=== PATIENT | female | born 1950 | race Hispanic/Latino ===

== ENCOUNTER 2018-11-23 06:51 | Observation (INO) | payer MEDICARE ==
[2018-11-13 12:24] LABS: BILIRUBIN,URINE NEGATIVE (NEGATIVE); CLARITY,URINE SL CLOUDY (CLEAR); COLOR,URINE YELLOW (YELLOW); KETONES,URINE NEGATIVE (NEGATIVE); LEUKOCYTE ESTERASE ,URINE NEGATIVE (NEGATIVE); NITRITE,URINE NEGATIVE (NEGATIVE); PROTEIN,URINE DIPSTICK 1+ (NEGATIVE); URINE UROBILINOGEN 0.2 mg/dL (0.2 - 1)
[2018-11-13 12:33] LABS: BASOPHILS % 0.5 % (0.0-1.0); EOSINOPHILS # (AUTO) 0.3 (0.0-0.4); EOSINOPHILS % 4.1 % (0.0-6.0); HEMOGLOBIN 11.3 g/dL (12.0-16.0); LYMPHOCYTES # (AUTO) 2.5 (1.0-3.2); LYMPHOCYTES % 31.7 % (18.0-39.1); MEAN CORPUSCULAR HEMOGLOBIN 25.1 pg (28-32); MEAN CORPUSCULAR HGB CONC 29.7 g/dL (31-35); MEAN CORPUSCULAR VOLUME 84.4 fL (81-99); MONOCYTES # (AUTO) 0.5 (0.2-0.8); MONOCYTES % 6.6 % (4.4-11.3); NEUTROPHILS # (AUTO) 4.4 (2.1-6.9); NEUTROPHILS % 56.8 % (38.7-80.0); PLATELET COUNT 331 x10e3/uL (140-360); RED CELL DISTRIBUTION WIDTH 15.8 % (11.7-14.4)
--- NOTE | 2018-11-13 12:36 | Diagnostic Imaging Report ---
Chest, 2 views, 11/13/2018. History: Preop, ventral hernia. Comparison: None available. Findings: The cardiomediastinal silhouette and pulmonary vasculature are within normal limits. The lungs are clear without evidence of consolidation or pleural effusion. There are no acute osseous or soft tissue abnormalities. Impression: No acute cardiopulmonary abnormality. Signed by: Dominic Chung on 11/13/2018 12:33 PM
[2018-11-13 12:49] LABS: ANION GAP 17.3 mmol/L (8-16); CALCIUM 10.6 mg/dL (8.4-10.2); CREATININE, SERUM 0.97 mg/dL (0.57-1.11); POTASSIUM 4.3 mmol/L (3.5-5.1)
[~2018-11-23] VITALS: Ht 162.6 cm; Wt 128.4 kg
[~2018-11-23 06:51] MED LIST: AMLODIPINE BESYL5 MG PO; ASPIR 8181 MG PO; FERROUS SULFAT325 MG PO; GABAPENTIN300 MG PO; HYDROCHLOROTH12.5 M1 PO; LOSARTAN POTAS100 MG PO; METFORMIN HCL850 MG PO; OMEGA 3 PO; ONE DAILY FOR1 EACH PO; SERTRALINE HCL100 MG PO; VITAMIN B-121000 MC1 PO; VITAMIN D3 PO
--- OUTSIDE RECORDS SUMMARY | 2018-11-23 06:53 | XMS REPORT | Summary of Care ---
Author Author [facility] Organization [facility] Address Unknown Phone Unavailable Encounter HQ Gabbi(FIN) [id number] Date(s): 03/19/16 - 03/19/16 [facility] [address] [place] [address]- Discharge Disposition: Home or Self Care Attending Physician: Tasneem Vasques MD Referring Physician: Tasneem Vasques MD Vital Signs No data available for this section Problem List Condition Effective Dates Status Health Status Informant Acute Active bronchitis(Confirmed ) Benign Active hypertension(Confirm ed) Hypercholesterolemia Active (Confirmed) Depression(Confirmed Active ) Morbid Active obesity(Confirmed) Obstructive sleep Active apnea(Confirmed) Diabetes mellitus Active type 2, uncontrolled, without complications(Confir med) Allergies, Adverse Reactions, Alerts Substance Reaction Severity Status NKDA Active Medications No data available for this section Results No data available for this section Immunizations Given and Recorded Vaccine Date Status Refusal Reason influenza virus vaccine, inactivated 02/07/16 Given pneumococcal 23-valent vaccine 03/17/13 Recorded Procedures No data available for this section Social History Social History Type Response Alcohol Never Smoking Status Former smoker; Exposure to Tobacco Smoke None; Cigarette Smoking Last 365 Days No; Reg Smoking Cessation Counseling No Assessment and Plan No data available for this section
--- OUTSIDE RECORDS SUMMARY | 2018-11-23 06:53 | XMS REPORT | Summary of Care ---
Author Author [facility] Organization [facility] Address Unknown Phone Unavailable Encounter HQ Gabbi(FIN) [id number] Date(s): 01/27/18 - 01/28/18 [facility] [address] [place] [address]- [phone] Vital Signs No data available for this section Problem List Condition Effective Dates Status Health Status Informant Benign Active hypertension(Confirm ed) Knee Active osteoarthritis(Confi rmed) Asthma(Confirmed) < 09/06/16 Resolved Mixed Active hyperlipidemia(Confi rmed) Morbid Active obesity(Confirmed) Obstructive sleep Active apnea(Confirmed) Sleep Active apnea(Confirmed) Diabetes mellitus Active type 2, controlled(Confirmed ) Allergies, Adverse Reactions, Alerts No Known Medication Allergies Medications losartan 100 mg oral tablet 100 mg=1 tab, PO, Daily, # 90 tab, 1 Refill(s), Pharmacy: [facility]/pharmacy #[id number] Start Date: 01/27/18 Status: Ordered Results No data available for this section Immunizations Given and Recorded Vaccine Date Status Refusal Reason influenza virus vaccine, inactivated1 01/02/18 Given influenza virus vaccine, inactivated2 12/06/16 Given influenza virus vaccine, inactivated 02/07/16 Given pneumococcal 23-valent vaccine 03/17/13 Recorded 1Result Comment: Patient waited 15 min with no reaction. 2Result Comment: Patient waited 15 minutes, no allergic reaction. Procedures Procedure Date Related Diagnosis Body Site Status Bone density scan1, 2 05/22/18 Completed Mammogram3, 4 05/22/18 Completed Diabetic Retinopathy Study 7 field 11/04/17 Completed stereoscopic fundus photography5 Cataract surgery6 09/2017 Completed Colonoscopy7 08/05/17 Completed Cataract surgery8 07/2017 Completed Hysterectomy Completed 1NORMAL 2Normal 3There is no mammographic evidence of malignancy. A 1 year screening mammogram is recommended.(05/23/2019) 4There is no mammographic evidence of malignancy. A 1 year screening mammogram is recommended.(05/07/2018) 5No DR, cataract Dr Gusman 6right eye 7Mild diverticulosis. Next one in [address] Sneed 8Left eye Social History Social History Type Response Substance Abuse Use: None. Alcohol Past Smoking Status Former smoker; Exposure to Tobacco Smoke None; Cigarette Smoking Last 365 Days No; Reg Smoking Cessation Counseling No entered on: 05/06/18 Assessment and Plan No data available for this section
--- OUTSIDE RECORDS SUMMARY | 2018-11-23 06:53 | XMS REPORT | Summary of Care ---
Author Author [facility] Organization [facility] Address Unknown Phone Unavailable Encounter HQ Kary_stacy(FIN) [id number] Date(s): 08/08/16 - 08/08/16 [facility] [address] [place] [address]- Discharge Disposition: Home or Self Care Attending Physician: Kelvin Victoria MD Admitting Physician: Kelvin Victoria MD Vital Signs No data available for this section Problem List Condition Effective Dates Status Health Status Informant Benign Active hypertension(Confirm ed) Knee Active osteoarthritis(Confi rmed) Hypercholesterolemia Active (Confirmed) Asthma(Confirmed) Active Depression(Confirmed Active ) Morbid Active obesity(Confirmed) Obstructive [...] Given pneumococcal 23-valent vaccine 03/17/13 Recorded Procedures Procedure Date Related Diagnosis Body Site Bone density scan1 03/19/16 Mammogram 03/19/16 1Normal Social History Social History Type Response Alcohol Never Smoking Status Former smoker; Exposure to Tobacco Smoke None; Cigarette Smoking Last 365 Days No; Reg Smoking Cessation Counseling No Assessment and Plan No data available for this section
--- OUTSIDE RECORDS SUMMARY | 2018-11-23 06:53 | XMS REPORT | Summary of Care ---
Author Author [facility] Organization [facility] Address Unknown Phone Unavailable Encounter HQ Gabbi(FIN) [id number] Date(s): 05/06/17 - 05/06/17 [facility] [address] [place] [address]- [phone] Encounter Diagnosis Encounter for screening mammogram for malignant neoplasm of breast (Final) - 05/07/17 Discharge Disposition: Home or Self Care Attending Physician: Tasneem Vasques MD Referring Physician: Tasneem Vasques MD Vital Signs No data available for this section Problem List Condition Effective Dates Status Health Status Informant Benign Active hypertension(Confirm ed) Knee Active osteoarthritis(Confi rmed) Hypercholesterolemia Active (Confirmed) Asthma(Confirmed) < 09/06/16 Resolved Morbid Active obesity(Confirmed) Obstructive sleep Active apnea(Confirmed) Sleep Active apnea(Confirmed) Diabetes mellitus Active type 2, controlled(Confirmed ) Allergies, Adverse Reactions, Alerts Substance Reaction Severity Status NKDA Active Medications No data available for this section Results No data available for this section Immunizations Given and Recorded Vaccine Date Status Refusal Reason influenza virus vaccine, inactivated1 12/06/16 Given influenza virus vaccine, inactivated 02/07/16 Given pneumococcal 23-valent vaccine 03/17/13 Recorded 1Result Comment: Patient waited 15 minutes, no allergic reaction. Procedures Procedure Date Related Diagnosis Body Site Status Colonoscopy1 08/05/17 Completed Mammogram2 05/06/17 Completed Examination of eye3 03/2017 Completed Bone density scan4 03/19/16 Completed Hysterectomy Completed 1Mild diverticulosis. Next one in [address] Sneed 2There is no mammographic evidence of malignancy. A 1 year screening mammogram is recommended.(05/07/2018) 3per patient 4Normal Social History Social History Type Response Substance Abuse Use: None. Alcohol Past Smoking Status Former smoker; Exposure to Tobacco Smoke None; Cigarette Smoking Last 365 Days No; Reg Smoking Cessation Counseling No entered on: 08/08/17 Assessment and Plan No data available for this section
--- OUTSIDE RECORDS SUMMARY | 2018-11-23 06:53 | XMS REPORT | Summary of Care ---
Author Author [facility] Organization [facility] Address Unknown Phone Unavailable Encounter JOSIE Seo(WILLA) [id number] Date(s): 04/04/17 - 04/04/17 [facility] [address], [address] [place] [address]- [phone] Discharge Disposition: Home or Self Care Attending Physician: Tasneem Vasques MD Vital Signs Most recent to 1 oldest [Reference Range]: Height 154.94 cm (04/04/17 9:55 AM) Temperature Oral 98.7 DegF [96.4-99.1 DegF] (04/04/17 9:55 AM) Blood Pressure 151/73 mmHg [90-140/60-90 mmHg] *HI* (04/04/17 9:55 AM) Respiratory Rate 14 BRMIN [14-20 BRMIN] (04/04/17 9:55 AM) Peripheral Pulse 76 bpm Rate [60-100 bpm] (04/04/17 9:55 AM) Weight 139.091 kg (04/04/17 9:55 AM) Body Mass Index 57.94 m2 (04/04/17 9:55 AM) Problem List Condition Effective Dates Status Health Status Informant Benign Active hypertension(Confirm ed) Knee Active osteoarthritis(Confi rmed) Hypercholesterolemia Active (Confirmed) Asthma(Confirmed) < 09/06/16 Resolved Depression(Confirmed Active ) Morbid Active obesity(Confirmed) Obstructive sleep Active apnea(Confirmed) Diabetes mellitus Active type 2, uncontrolled, without complications(Confir med) Allergies, Adverse Reactions, Alerts Substance Reaction Severity Status NKDA Active Medications amLODIPine 5 mg oral tablet 5 mg=1 tab, PO, BID, # 180 tab, 1 Refill(s), Pharmacy: [id number] Start Date: 04/04/17 Stop Date: 10/01/17 Status: Ordered aspirin 81 mg tablet, enteric coated 81 mg=1 tab, PO, Daily, # 90 tab, 1 Refill(s), [id number] Start Date: 04/04/17 Stop Date: 10/01/17 Status: Ordered [facility] ADVANCED GLUCOSE TEST STR See Instructions, # 100 strip, Refill(s) 11, CHECK BLOOD GLUCOSE ONCE A DAY, [id number] Start Date: 05/26/17 Status: Ordered gabapentin 300 mg oral capsule See Instructions, TAKE 1 CAPSULE BY MOUTH TWICE A DAY, # 180 tab, 1 Refill(s), [id number] Start Date: 04/04/17 Status: Ordered hydrochlorothiazide 12.5 mg oral capsule See Instructions, TAKE ONE CAPSULE BY MOUTH DAILY, # 90 tab, 1 Refill(s), Pharma cy: [facility]/pharmacy #[id number] Start Date: 04/04/17 Status: Ordered losartan 100 mg oral tablet See Instructions, TAKE 1 TABLET BY MOUTH EVERY DAY, # 30 tab, 4 Refill(s), [id number] Start Date: 04/04/17 Status: Ordered metFORMIN 850 mg oral tablet See Instructions, TAKE 1 TABLET TWICE DAILY WITH MEALS, # 180 tab, 1 Refill(s), Pharmacy: [facility] #[id number] Start Date: 04/04/17 Status: Ordered sertraline 100 mg oral tablet See Instructions, TAKE 1 TABLET BY MOUTH EVERY DAY, # 30 tab, 4 Refill(s), Pharm acy: [facility] #[id number] Start Date: 04/04/17 Status: Ordered Results No data available for this section Immunizations Given and Recorded Vaccine Date Status Refusal Reason influenza virus vaccine, inactivated1 12/06/16 Given influenza virus vaccine, inactivated 02/07/16 Given pneumococcal 23-valent vaccine 03/17/13 Recorded 1Result Comment: Patient waited 15 minutes, no allergic reaction. Procedures Procedure Date Related Diagnosis Body Site Status Mammogram1 05/06/17 Completed Examination of eye2 03/2017 Completed Bone density scan3 03/19/16 Completed Hysterectomy Completed 1There is no mammographic evidence of malignancy. A 1 year screening mammogram is recommended.(05/07/2018) 2per patient 3Normal Social History Social History Type Response Alcohol Never Smoking Status Former smoker; Exposure to Tobacco Smoke None; Cigarette Smoking Last 365 Days No; Reg Smoking Cessation Counseling No entered on: 04/04/17 Assessment and Plan No data available for this section
--- OUTSIDE RECORDS SUMMARY | 2018-11-23 06:53 | XMS REPORT | Summary of Care ---
Author Author [facility] Organization [facility] Address Unknown Phone Unavailable Encounter HQ Kary_stacy(FIN) [id number] Date(s): 09/24/16 - 09/24/16 [facility] [address] [place] [address]- Discharge Disposition: Home or Self Care Attending Physician: Kelvin Victoria MD Referring Physician: Kelvin Victoria MD Vital Signs No [...] Site Bone density scan1 03/19/16 Mammogram 03/19/16 Examination of eye2 03/2016 1Normal 2per patient Social History Social History Type Response Alcohol Never Smoking Status Former smoker; Exposure to Tobacco Smoke None; Cigarette Smoking Last 365 Days No; Reg Smoking Cessation Counseling No Assessment and Plan No data available for this section
--- OUTSIDE RECORDS SUMMARY | 2018-11-23 06:53 | XMS REPORT | Summary of Care ---
Author Author [facility] Organization [facility] Address Unknown Phone Unavailable Encounter JOSIE Seo(WILLA) [id number] Date(s): 08/05/17 - 08/05/17 [facility] [address] [place] [address]- [phone] Discharge Disposition: Home or Self Care Attending Physician: Kyara Sneed MD Referring Physician: Kyara Sneed MD Vital Signs 1 2 3 Most recent to oldest [Reference Range]: 162.56 cm (08/01/17 9:14 AM) Height 97.8 DegF (08/01/17 9:20 AM) Temperature Oral [96.4-99.1 DegF] 142/72 mmHg *HI* (08/05/17 10:00 AM) 140/62 mmHg (08/05/17 9:45 AM) 140/62 mmHg (08/05/17 9:32 AM) Blood Pressure [90-140/60-90 mmHg] 19 BRMIN (08/05/17 10:00 AM) 15 BRMIN (08/05/17 9:45 AM) 18 BRMIN (08/05/17 9:32 AM) Respiratory Rate [14-20 BRMIN] 69 bpm (08/01/17 9:20 AM) Peripheral Pulse Rate [60-100 bpm] 128.636 kg (08/01/17 9:14 AM) Weight 48.68 m2 (08/01/17 9:14 AM) Body Mass Index Problem List Condition Effective Dates Status Health Status Informant Benign Active hypertension(Confirm ed) Knee Active osteoarthritis(Confi rmed) Depression(Confirmed Active ) Diabetes(Confirmed) Active Hypercholesterolemia Active (Confirmed) Asthma(Confirmed) < 09/06/16 Resolved HTN Active (hypertension)(Confi rmed) Depression(Confirmed Active ) Morbid Active obesity(Confirmed) Obstructive sleep Active apnea(Confirmed) Sleep Active apnea(Confirmed) Diabetes mellitus Active type 2, uncontrolled, without complications(Confir med) Allergies, Adverse Reactions, Alerts Substance Reaction Severity Status NKDA Active Medications One-A-Day Women oral tablet 1 tab, PO, Daily, 0 Refill(s) Start Date: 08/01/17 Status: Ordered Vitamin D3 PO, Daily, 0 Refill(s) Start Date: 08/01/17 Status: Ordered Results ELECTROLYTES Most recent to 1 oldest [Reference Range]: Sodium Lvl [135-145 140 mEq/L mEq/L] (08/01/17 10:02 AM) Potassium Lvl 3.9 mEq/L [3.5-5.1 mEq/L] (08/01/17 10:02 AM) Chloride Lvl [95-109 104 mEq/L mEq/L] (08/01/17 10:02 AM) CO2 [24-32 mEq/L] 28 mEq/L (08/01/17 10:02 AM) AGAP [10.0-20.0 11.9 mEq/L mEq/L] (08/01/17 10:02 AM) CHEM PANEL Most recent to 1 oldest [Reference Range]: Creatinine Lvl 0.89 mg/dL [0.50-1.40 mg/dL] (08/01/17 10:02 AM) eGFR 68 mL/min/1.73m2 1 *NA* (08/01/17 10:02 AM) BUN [7-22 mg/dL] 16 mg/dL (08/01/17 10:02 AM) Glucose Lvl [70-99 121 mg/dL mg/dL] *HI* (08/01/17 10:02 AM) Calcium Lvl 8.9 mg/dL [8.5-10.5 mg/dL] (08/01/17 10:02 AM) 1Result Comment: The eGFR is calculated using the CKD-EPI formula. In most young, healthy individuals the eGFR will be >90 mL/min/1.73m2. The eGFR declines with age. An eGFR of 60-89 may be normal in some populations, particularly the elderly, for whom the CKD-EPI formula has not been extensively validated. Use of the eGFR is not recommended in the following populations: Individuals with unstable creatinine concentrations, including patients and those with serious co-morbid conditions. Patients with extremes in muscle mass or diet. The data above are obtained from the National Kidney Disease Education Program ( NKDEP) which additionally recommends that when the eGFR is used in patients with extremes of body mass index for purposes of drug dosing, the eGFR should be mul tiplied by the estimated BMI. Immunizations Given and Recorded Vaccine Date Status Refusal Reason influenza virus vaccine, inactivated1 12/06/16 Given influenza virus vaccine, inactivated 02/07/16 Given pneumococcal 23-valent vaccine 03/17/13 Recorded 1Result Comment: Patient waited 15 minutes, no allergic reaction. Procedures Procedure Date Related Diagnosis Body Site Status Mammogram1 05/06/17 Completed Examination of eye2 03/2017 Completed Bone density scan3 03/19/16 Completed Colonoscopy4 Completed Hysterectomy Completed 1There is no mammographic evidence of malignancy. A 1 year screening mammogram is recommended.(05/07/2018) 2per patient 3Normal 4at age 50 Social History Social History Type Response Substance Abuse Use: None. Alcohol Past Smoking Status Former smoker; Exposure to Tobacco Smoke None; Cigarette Smoking Last 365 Days No; Reg Smoking Cessation Counseling No entered on: 08/01/17 Assessment and Plan No data available for this section
--- OUTSIDE RECORDS SUMMARY | 2018-11-23 06:53 | XMS REPORT | Summary of Care ---
Author Author [facility] Organization [facility] Address Unknown Phone Unavailable Encounter HQ Kary_stacy(FIN) [id number] Date(s): 08/14/16 - 08/14/16 [facility] [address] [place] [address]- [phone] Discharge Disposition: Home or Self Care Attending [...]
--- OUTSIDE RECORDS SUMMARY | 2018-11-23 06:53 | XMS REPORT | Summary of Care ---
Author Author [facility] Organization [facility] Address Unknown Phone Unavailable Encounter JOSIE Seo(WILLA) [id number] Date(s): 04/04/17 - 04/04/17 [facility] [address], [address] [place] [address]- [phone] Discharge Disposition: Home or Self Care Attending [...] # 180 tab, 1 Refill(s), [id number] Start Date: 04/04/17 Stop Date: 10/01/17 Status: Ordered aspirin 81 mg tablet, enteric coated 81 mg=1 tab, PO, Daily, # 90 tab, 1 Refill(s), [id number] Start Date: 04/04/17 Stop Date: 10/01/17 Status: Ordered [facility] ADVANCED GLUCOSE TEST STR See Instructions, # 100 strip, Refill(s) 11, CHECK BLOOD GLUCOSE ONCE A DAY, [id number] Start Date: 05/26/17 Status: Ordered gabapentin 300 mg oral capsule See Instructions, TAKE 1 CAPSULE BY MOUTH TWICE A DAY, # 180 tab, 1 Refill(s), [id number] Start Date: 04/04/17 Status: Ordered hydrochlorothiazide 12.5 mg oral capsule See Instructions, TAKE ONE CAPSULE BY MOUTH DAILY, # 90 tab, 1 Refill(s), Pharma cy: [facility]/pharmacy #[id number] Start Date: 04/04/17 Status: Ordered losartan 100 mg oral tablet See Instructions, TAKE 1 TABLET BY MOUTH EVERY DAY, # 30 tab, 4 Refill(s), [id number] Start Date: 04/04/17 Status: Ordered metFORMIN 850 mg oral tablet See Instructions, TAKE 1 TABLET TWICE DAILY WITH MEALS, # 180 tab, 1 Refill(s), Pharmacy: [facility] #[id number] Start Date: 04/04/17 Status: Ordered sertraline 100 mg oral tablet See Instructions, TAKE 1 TABLET BY MOUTH EVERY DAY, # 30 tab, 4 Refill(s), Pharm acy: [facility] #[id number] Start Date: 04/04/17 Status: Ordered Results [...]
--- OUTSIDE RECORDS SUMMARY | 2018-11-23 06:53 | XMS REPORT | Summary of Care ---
Author Author [facility] Organization [facility] Address Unknown Phone Unavailable Encounter JOSIE Seo(FIN) [id number] Date(s): 05/06/18 - 05/06/18 [facility] [address], [address] [place] [address]- [phone] Discharge Disposition: Home or Self Care Attending Physician: Tasneem Vasques MD Vital Signs Most recent to 1 2 oldest [Reference Range]: Height 162.56 cm (05/06/18 11:12 AM) Temperature Oral 97.8 DegF [96.4-99.1 DegF] (05/06/18 11:12 AM) Blood Pressure 135/67 mmHg 155/83 mmHg [90-140/60-90 mmHg] (05/06/18 11:30 AM) *HI* (05/06/18 11:12 AM) Respiratory Rate 16 BRMIN [14-20 BRMIN] (05/06/18 11:12 AM) Peripheral Pulse 60 bpm Rate [60-100 bpm] (05/06/18 11:12 AM) Weight 128.438 kg (05/06/18 11:12 AM) Body Mass Index 48.6 m2 (05/06/18 11:12 AM) Problem List Condition Effective Dates Status Health Status Informant Benign Active hypertension(Confirm ed) Knee Active osteoarthritis(Confi rmed) Asthma(Confirmed) < 09/06/16 Resolved Mixed Active hyperlipidemia(Confi rmed) Morbid Active obesity(Confirmed) Obstructive sleep Active apnea(Confirmed) Sleep Active apnea(Confirmed) Diabetes mellitus Active type 2, controlled(Confirmed ) Allergies, Adverse Reactions, Alerts Substance Reaction Severity Status NKDA Active Medications No Known Medications Results No data available for this section [...] Procedure Date Related Diagnosis Body Site Status Diabetic Retinopathy Study 7 field 11/04/17 Completed stereoscopic fundus photography1 Cataract surgery2 09/2017 Completed Colonoscopy3 08/05/17 Completed Cataract surgery4 07/2017 Completed Mammogram5 05/06/17 Completed Bone density scan6 03/19/16 Completed Hysterectomy Completed 1No DR, cataract Dr Gusman 2right eye 3Mild diverticulosis. Next one in [address] Sneed 4Left eye 5There is no mammographic evidence of malignancy. A 1 year screening mammogram is recommended.(05/07/2018) 6Normal Social History Social History Type Response Substance Abuse Use: None. Alcohol Past Smoking Status Former smoker; Exposure to Tobacco Smoke None; Cigarette Smoking Last 365 Days No; Reg Smoking Cessation Counseling No entered on: 05/06/18 Assessment and Plan No data available for this section
--- OUTSIDE RECORDS SUMMARY | 2018-11-23 06:53 | XMS REPORT | Summary of Care ---
Author Author [facility] Organization [facility] Address Unknown Phone Unavailable Encounter JOSIE Seo(WILLA) [id number] Date(s): 01/02/18 - 01/02/18 [facility] [address] [place] [address]- Discharge Disposition: Home or Self Care Attending Physician: Tasneem Vasques MD Vital Signs Most recent to 1 oldest [Reference Range]: Height 162.56 cm (01/02/18 11:42 AM) Temperature Oral 97.2 DegF [96.4-99.1 DegF] (01/02/18 11:42 AM) Blood Pressure 136/68 mmHg [90-140/60-90 mmHg] (01/02/18 11:42 AM) Respiratory Rate 16 BRMIN [14-20 BRMIN] (01/02/18 11:42 AM) Peripheral Pulse 68 bpm Rate [60-100 bpm] (01/02/18 11:42 AM) Weight 131.364 kg (01/02/18 11:42 AM) Body Mass Index 49.71 m2 (01/02/18 11:42 AM) Problem List Condition Effective Dates Status Health Status Informant Benign Active hypertension(Confirm ed) Knee Active osteoarthritis(Confi rmed) Asthma(Confirmed) < 09/06/16 Resolved Mixed Active hyperlipidemia(Confi rmed) Morbid Active obesity(Confirmed) Obstructive sleep Active apnea(Confirmed) Sleep Active apnea(Confirmed) Diabetes mellitus Active type 2, controlled(Confirmed ) Allergies, Adverse Reactions, Alerts No Known Medication Allergies Medications amLODIPine 5 mg oral tablet 5 mg=1 tab, PO, BID, # 180 tab, 1 Refill(s), Pharmacy: [facility]/pharmacy #[id number] Start Date: 01/02/18 Stop Date: 07/06/18 Status: Completed gabapentin 300 mg oral capsule See Instructions, TAKE 1 CAPSULE BY MOUTH TWICE A DAY, # 180 tab, 1 Refill(s), P harmacy: [facility]/pharmacy #[id number] Start Date: 01/02/18 Status: Ordered hydrochlorothiazide 12.5 mg oral capsule See Instructions, Take 1 tablet twice a day, # 180 tab, 1 Refill(s), [id number] Start Date: 01/02/18 Status: Ordered losartan 100 mg oral tablet See Instructions, TAKE 1 TABLET BY MOUTH EVERY DAY, # 90 tab, 1 Refill(s), Pharm acy: [facility]/pharmacy #[id number] Start Date: 01/02/18 Stop Date: 05/06/18 Status: Discontinued metFORMIN 850 mg oral tablet See Instructions, TAKE 1 TABLET TWICE DAILY WITH MEALS, # 180 tab, 1 Refill(s), [id number] Start Date: 01/02/18 Status: Ordered sertraline 100 mg oral tablet See Instructions, TAKE 1 TABLET BY MOUTH EVERY DAY, # 30 tab, 4 Refill(s), Pharm acy: [facility]/pharmacy #[id number] Start Date: 01/02/18 Stop Date: 01/29/18 Status: Completed Results No data available for this section [...] 1 year screening mammogram is recommended.(05/07/2018) 5No , cataract Dr Gusman 6right eye 7Mild diverticulosis. Next one in [address] Sneed 8[facility] Social History Social History Type Response Substance Abuse Use: None. Alcohol Past Smoking Status Former smoker; Exposure to Tobacco Smoke None; Cigarette Smoking Last 365 Days No; Reg Smoking Cessation Counseling No entered on: 05/06/18 Assessment and Plan No data available for this section
--- OUTSIDE RECORDS SUMMARY | 2018-11-23 06:53 | XMS REPORT | Summary of Care ---
Author Author [facility] Organization [facility] Address Unknown Phone Unavailable Encounter HQ Kary_stacy(FIN) [id number] Date(s): 05/07/18 - 05/08/18 [facility] [address], [address] [place] [address]- [phone] Vital Signs No data available for this [...]
--- OUTSIDE RECORDS SUMMARY | 2018-11-23 06:53 | XMS REPORT | Continuity of Care Document ---
Author Author [employer]hand Organization [employer] Address Unknown Phone Unavailable Care Team Providers Care [employer] Name Role Phone [employer] Unavailable Unavailable Problems Problem Status Onset Date Classification Date Reported Comments Source ROUTINE MAMMO - NO SYMPTOMS, OSTEOPOROSI Active 05/08/2018 [facility] UNK Active 07/18/2017 [facility] Encounter for screening mammogram for malignant neoplasm of breast 05/08/2017 08/12/2017 [facility] SCREENING Active 04/08/2017 [facility] Asthma (disorder) Resolved 09/06/2016 Problem 10/09/2018 [facility] CPAP [id number] Active 09/03/2016 [facility] FIRST NIGHT 93029 Active 08/13/2016 [facility] R06.02 Active 08/08/2016 [facility] DX: SCREENING MAMMO/OSTEOPOROSIS WILL Active 02/09/2016 [facility] Hypercholesterolemia (disorder) Active Problem 08/12/2017 [facility] Depressive disorder (disorder) Active Problem 08/08/2017 [facility] Type II diabetes mellitus uncontrolled (finding) Active Problem 08/08/2017 [facility] Benign hypertension (disorder) Active Problem 10/09/2018 [facility] Osteoarthritis of knee (disorder) Active Problem 10/09/2018 [facility] Mixed hyperlipidemia (disorder) Active Problem 10/09/2018 [facility] Morbid obesity (disorder) Active Problem 10/09/2018 [facility] Obstructive sleep apnea syndrome (disorder) Active Problem 10/09/2018 [facility] Sleep apnea (finding) Active Problem 08/28/2018 [facility] Diabetes mellitus type 2 (disorder) Active Problem 10/09/2018 [facility] Acute bronchitis (disorder) Active Problem 03/22/2016 [facility] Diabetes mellitus (disorder) Active Problem 08/08/2017 [facility] Hypertensive disorder, systemic arterial (disorder) Active Problem 08/08/2017 [facility] Hernia of anterior abdominal wall (disorder) Active Problem 10/09/2018 [facility] ENCNTR SCREEN MAMMOGRAM FOR MALIGNANT NE Active [facility] AGE-RELATED OSTEOPOROSIS W/O CURRENT PAT Active [facility] SHORTNESS OF BREATH Active [facility] OBSTRUCTIVE SLEEP APNEA (ADULT) (PEDIATR Active [facility] Medications Medication Details Route Status Patient Instructions Ordering Provider Order Date Source sertraline 100 mg oral tablet =1 tab, PO, Daily, # 90 tab, 1 Refill(s), [id number] 09/03/2018 [facility] Metformin hydrochloride 850 MG Oral Tablet See Instructions, TAKE 1 TABLET TWICE DAILY WITH MEALS, # 180 tab, 1 Refill(s), [id number] Active 09/03/2018 [facility] losartan 100 mg oral tablet 100 mg=1 tab, PO, Daily, # 90 tab, 1 Refill(s), [id number] Active 09/03/2018 [facility] Hydrochlorothiazide 12.5 MG Oral Capsule =1 cap, PO, BID, # 180 cap, 1 Refill(s), [id number] Active 09/03/2018 [facility] gabapentin 300 MG Oral Capsule See Instructions, TAKE 1 CAPSULE BY MOUTH TWICE A DAY, # 180 tab, 1 Refill(s), [id number] Active 09/03/2018 [facility] amLODIPine 5 mg oral tablet 5 mg=1 tab, PO, BID, # 180 tab, 0 Refill(s), [id number] Active 09/03/2018 [facility] amLODIPine 5 mg oral tablet 5 mg=1 tab, PO, BID, # 180 tab, 0 Refill(s), [id number] Active 08/24/2018 [facility] amLODIPine 5 mg oral tablet =1 tab, PO, Daily, # 90 tab, Refill(s) 1, [id number] Active 07/06/2018 [facility] sertraline 100 mg oral tablet =1 tab, PO, Daily, # 90 tab, [id number] No Longer Active 06/21/2018 [facility] sertraline 100 mg oral tablet 100 mg=1 tab, PO, Daily, # 90 tab, 0 Refill(s), [id number] No Longer Active 03/20/2018 [facility] losartan 100 mg oral tablet 100 mg=1 tab, PO, Daily, # 90 tab, 1 Refill(s), [id number] Active 01/28/2018 [facility] amLODIPine 5 mg oral tablet 5 mg=1 tab, PO, Daily, # 90 tab, 1 Refill(s), Pharmacy: [facility] #[id number] No Longer Active 01/15/2018 [facility] sertraline 100 mg oral tablet See Instructions, TAKE 1 TABLET BY MOUTH EVERY DAY, # 30 tab, 4 Refill(s), [id number] No Longer Active 01/02/2018 [facility] Metformin hydrochloride 850 MG Oral Tablet See Instructions, TAKE 1 TABLET TWICE DAILY WITH MEALS, # 180 tab, 1 Refill(s), Pharmacy: [facility] #[id number] Active 01/02/2018 [facility] losartan 100 mg oral tablet See Instructions, TAKE 1 TABLET BY MOUTH EVERY DAY, # 90 tab, 1 Refill(s), Pharmacy: [facility] #[id number] No Longer Active 01/02/2018 [facility] Hydrochlorothiazide 12.5 MG Oral Capsule See Instructions, Take 1 tablet twice a day, # 180 tab, 1 Refill(s), [id number] Active 01/02/2018 [facility] gabapentin 300 MG Oral Capsule See Instructions, TAKE 1 CAPSULE BY MOUTH TWICE A DAY, # 180 tab, 1 Refill(s), Pharmacy: [facility] #[id number] Active 01/02/2018 [facility] amLODIPine 5 mg oral tablet 5 mg=1 tab, PO, BID, # 180 tab, 1 Refill(s), [id number] No Longer Active 01/02/2018 [facility] sertraline 100 mg oral tablet See Instructions, TAKE 1 TABLET BY MOUTH EVERY DAY, # 30 tab, 4 Refill(s), [id number] Active 08/08/2017 [facility] Metformin hydrochloride 850 MG Oral Tablet See Instructions, TAKE 1 TABLET TWICE DAILY WITH MEALS, # 180 tab, 1 Refill(s), [id number] Active 08/08/2017 [facility] losartan 100 mg oral tablet See Instructions, TAKE 1 TABLET BY MOUTH EVERY DAY, # 90 tab, 1 Refill(s), [id number] Active 08/08/2017 [facility] levalbuterol 0.63 mg/3 mL inhalation solution 0.63 mg=3 mL, NEB, Q6H, PRN as need for shortness of breath, as needed for cough, # 360 mL, 8 Refill(s), [id number] Active 08/08/2017 [facility] Hydrochlorothiazide 12.5 MG Oral Capsule See Instructions, Take 1 tablet twice a day, # 180 tab, 1 Refill(s), [id number] Active 08/08/2017 [facility] gabapentin 300 MG Oral Capsule See Instructions, TAKE 1 CAPSULE BY MOUTH TWICE A DAY, # 180 tab, 1 Refill(s), [id number] Active 08/08/2017 [facility] Aspirin 81 MG Enteric Coated Tablet 81 mg=1 tab, PO, Daily, # 90 tab, 1 Refill(s), [id number] Active 08/08/2017 [facility] amLODIPine 5 mg oral tablet 5 mg=1 tab, PO, BID, # 180 tab, 1 Refill(s), [id number] Active 08/08/2017 [facility] Vitamin D3 PO, Daily, 0 Refill(s) Active 08/01/2017 [facility] One-A-Day Women oral tablet 1 tab, PO, Daily, 0 Refill(s) Active 08/01/2017 [facility] amLODIPine 5 mg oral tablet 5 mg=1 tab, PO, BID, # 180 tab, 1 Refill(s), [id number] Active 07/29/2017 [facility] ADVANCED GLUCOSE TEST STR See Instructions, # 100 strip, Refill(s) 11, CHECK BLOOD GLUCOSE ONCE A DAY, [id number] Active 05/26/2017 [facility] sertraline 100 mg oral tablet See Instructions, TAKE 1 TABLET BY MOUTH EVERY DAY, # 30 tab, 4 Refill(s), [id number] Active 04/04/2017 [facility] Metformin hydrochloride 850 MG Oral Tablet See Instructions, TAKE 1 TABLET TWICE DAILY WITH MEALS, # 180 tab, 1 Refill(s), [id number] Active 04/04/2017 [facility] losartan 100 mg oral tablet See Instructions, TAKE 1 TABLET BY MOUTH EVERY DAY, # 30 tab, 4 Refill(s), [id number] Active 04/04/2017 [facility] Hydrochlorothiazide 12.5 MG Oral Capsule See Instructions, TAKE ONE CAPSULE BY MOUTH DAILY, # 90 tab, 1 Refill(s), [id number] Active 04/04/2017 [facility] gabapentin 300 MG Oral Capsule See Instructions, TAKE 1 CAPSULE BY MOUTH TWICE A DAY, # 180 tab, 1 Refill(s), [id number] Active 04/04/2017 [facility] amLODIPine 5 mg oral tablet 5 mg=1 tab, PO, BID, # 180 tab, 1 Refill(s), [id number] Active 04/04/2017 [facility] Aspirin 81 MG Enteric Coated Tablet 81 mg=1 tab, PO, Daily, # 90 tab, 1 Refill(s), [id number] Active 04/04/2017 [facility] Allergies, Adverse Reactions, Alerts Substance Category Reaction Severity Reaction type Status Date Reported Comments Source No Known Medication Allergies Assertion Drug allergy [facility] Immunizations Immunization Date Given Site Status Last Updated Comments Source influenza virus vaccine, inactivated<sup>1</sup> 01/02/2018 Right Deltoid completed [facility] Result Comment: Patient waited 15 min with no reaction. [facility] influenza virus vaccine, inactivated<sup>2</sup> 12/06/2016 Left Deltoid completed [facility] Result Comment: Patient waited 15 minutes, no allergic reaction. [facility] influenza virus vaccine, inactivated<sup>1</sup> 12/06/2016 Left Deltoid completed [facility] Result Comment: Patient waited 15 minutes, no allergic reaction. [facility] influenza virus vaccine, inactivated 02/07/2016 Right Deltoid completed [facility] pneumococcal 23-valent vaccine 03/17/2013 completed [facility] Results Order Name Results Value Reference Range Date Interpretation Comments Source CHEM PANEL eGFR 68 08/01/2017 Result Comment: The eGFR is calculated using the [...] from the National Kidney Disease Education Program (NKDEP) which additionally recommends that when the eGFR is used in patients with extremes of body mass index for purposes of drug dosing, the eGFR should be multiplied by the estimated BMI. [facility] CHEM PANEL CO2 28 24 - 32 08/01/2017 [facility] CHEM PANEL Calcium Lvl 8.9 8.5 - 10.5 08/01/2017 [facility] CHEM PANEL AGAP 11.9 10.0 - 20.0 08/01/2017 [facility] CHEM PANEL Creatinine Lvl 0.89 0.50 - 1.40 08/01/2017 [facility] CHEM PANEL BUN 16 7 - 22 08/01/2017 [facility] CHEM PANEL Glucose Lvl 121 70 - 99 08/01/2017 [facility] CHEM PANEL Chloride Lvl 104 95 - 109 08/01/2017 [facility] CHEM PANEL Potassium Lvl 3.9 3.5 - 5.1 08/01/2017 [facility] CHEM PANEL Sodium Lvl 140 135 - 145 08/01/2017 [facility] Pathology Reports No Data Provided for This Section Diagnostic Reports Report Value Date Source Breast Mammo Scrn VENKATESH incl CAD MA BILATERAL DIGITAL SCREENING MAMMOGRAM WITH CAD: 05/22/2018 CLINICAL: /Routine. Current study was evaluated with a Computer Aided Detection (CAD) system. COMPARISON:Comparison is made to exams dated: 05/06/2017 mammogram, 03/19/2016 mammogram - [facility], and 09/19/2014 mammogram. TECHNIQUE: Mammographic views were obtained using digital acquisition. [employer] Version 1.3 was utilized for computer aided detection. FINDINGS: There are scattered fibroglandular densities in both breasts. There are benign vascular calcifications in both breasts. No significant masses, calcifications, or other findings are seen in either breast. There has been no significant interval change. IMPRESSION: BENIGN RECOMMENDATION:There is no mammographic evidence of malignancy. A 1 year screening mammogram is recommended.(05/23/2019) This exam was interpreted at [id number] for [facility] Breast Wayan. Gale Porter M.D. ap/penrad:05/22/2018 12:16:12 [employer] Operator(s): Lili Dodson, [facility] letter sent: BI-RADS 1/2 Mammogram BI-RADS: 2 Benign 05/22/2018 [facility] Bone Density Scan Study: Bone Density Scan Clinical Indication: Osteoporosis screening; Images of the axial lumbar spine and left hip have been performed using [employer] Discovery SL scanner. COMPARISON: 03/19/2016 FINDINGS: The left hip bone mineral density is 138% of the peak reference bone mass with a T-score of 2.9. Left hip BMD is 1.302 g/cm2. Left femoral neck BMD is 1.085 g/cm2 and T-score of 2.1. Left hip BMD has increased 28% since previous exam. The axial lumbar bone mineral density is 129% of the peak reference bone mass with a T-score of 2.8. Axial lumbar average BMD is 1.352 g/cm2. Lumbar spine BMD has increased 15% since previous exam. IMPRESSION: 1. Normal bone mineral density of the left femoral neck. 2. Normal bone mineral density of the total left hip. 3. Normal bone mineral density of the lumbar spine. The World Health Organization has established that OSTEOPOROSIS occurs at -2.5 or more standard deviations (SD) below peak bone mass (T-score on the Hologic report). OSTEOPENIA (low bone mass) occurs at greater than -1.0 standard deviations to -2.5 standard deviations below peak bone mass. SL: [id number] 05/22/2018 [facility] Breast Mammo Scrn VENKATESH incl CAD MA BILATERAL DIGITAL SCREENING MAMMOGRAM WITH CAD: 05/06/2017 Current study was evaluated with a Computer Aided Detection (CAD) system. COMPARISON:Comparison is made to exams dated: 03/19/2016 mammogram - [facility] and 09/19/2014 mammogram. TECHNIQUE: Mammographic views were obtained using digital acquisition. [employer] Version 1.3 was utilized for computer aided detection. FINDINGS: The tissue of both breasts is almost entirely fat. Technologist indicates the exam is limited secondary to the patient's underlying prior shoulder injury/pain. Optimal positioning was not allowed. Best images obtained were submitted. There is a benign calcification in both breasts. There also are benign vascular calcifications in both breasts. No significant masses, calcifications, or other findings are seen in either breast. There has been no significant interval change. IMPRESSION: BENIGN RECOMMENDATION:There is no mammographic evidence of malignancy. A 1 year screening mammogram is recommended.(05/07/2018) This exam was interpreted at [id number] for [facility]. Danny gould/penrad:05/06/2017 10:08:33 [employer] Cutting Machine Operator(s): Ana Isabel, [facility] letter sent: BI-RADS 1/2 Mammogram BI-RADS: 2 Benign 05/06/2017 [facility] Chest 2 views DX Patient Name: SHADE LUGO : 1950; Age: 65 years y/o Female MR: [id number] * CHEST, 2 views HISTORY: - r06.o2 shortness of breath COMPARISON: None TECHNIQUE: Frontal and lateral radiographs of the chest were obtained. FINDINGS: The lungs are clear. There is slight flattening the hemidiaphragms, possible chronic obstructive pulmonary disease. There are no pleural effusions. The heart and pulmonary vasculature are within normal limits. The regional skeleton is unremarkable. IMPRESSION: 1. No active disease. 2. Slight flattening of the hemidiaphragms, possible chronic obstructive pulmonary disease. SL: [id number] 08/08/2016 [facility] Digital Mammo Screening Venkatesh MA - DIGITAL MAMMO SCREENING VENKATESH MA BILATERAL DIGITAL SCREENING MAMMOGRAM WITH CAD: 03/19/2016 Current study was evaluated with a Computer Aided Detection (CAD) system. Comparison is made to exam dated: 09/19/2014 mammogram. The tissue of both breasts is almost entirely fat. There are benign vascular calcifications and a calcification in both breasts. No significant masses, calcifications, or other findings are seen in either breast. There has been no significant interval change. IMPRESSION: BENIGN There is no mammographic evidence of malignancy. A 1 year screening mammogram is recommended. Danny gould/penrad:03/21/2016 11:03:09 Flame Cutting Machine Operator: Blanca Segundo, [facility] This exam was dictated and interpreted by [id number] for [facility]. letter sent: Normal exam Mammogram BI-RADS: 2 Benign 03/19/2016 [facility] Bone Density Scan Study: Bone Density Scan Clinical Indication: m81.0 osteoporosis; prior hysterectomy. Images of the axial lumbar spine and left hip have been performed using [employer] Discovery SL scanner. COMPARISON: None FINDINGS: The left hip bone mineral density is 108% of the peak reference bone mass with a T-score of 0.6. Left hip BMD is 1.015 g/cm2. Left Femoral neck BMD is 0.837 g/cm2 and T-score of -0.1. The axial lumbar bone mineral density is 112% of the peak reference bone mass with a T-score 1.1. Axial lumbar average BMD is 1.171 g/cm2. IMPRESSION: 1. Normal bone density of the left femoral neck. 2. Normal bone density of the total left hip. 3. Normal bone density of the lumbar spine. The World Health Organization has established that OSTEOPOROSIS occurs at -2.5 or more standard deviations (SD) below peak bone mass (T-score on the Hologic report). OSTEOPENIA (low bone mass) occurs at -1.0 standard deviations to -2.5 standard deviations below peak bone mass. SL: [id number] 03/19/2016 [facility] Consultation Notes No Data Provided for This Section Discharge Summaries No Data Provided for This Section History and Physicals No Data Provided for This Section Vital Signs Vital Sign Value Date Comments Source Systolic (mm Hg) 138 09/03/2018 [facility] Diastolic (mm Hg) 61 09/03/2018 [facility] Weight 130.909 09/03/2018 [facility] BMI Calculated 49.54 09/03/2018 [facility] Height 162.56 cm 09/03/2018 [facility] Respitory Rate 16 09/03/2018 [facility] Temperature Oral (F) 98.1 F 09/03/2018 [facility] Systolic (mm Hg) 145 09/03/2018 [facility] Diastolic (mm Hg) 77 09/03/2018 [facility] Heart Rate 67 09/03/2018 [facility] Systolic (mm Hg) 135 05/06/2018 [facility] Diastolic (mm Hg) 67 05/06/2018 [facility] BMI Calculated 48.6 05/06/2018 [facility] Height 162.56 cm 05/06/2018 [facility] Weight 128.438 05/06/2018 [facility] Systolic (mm Hg) 155 05/06/2018 [facility] Diastolic (mm Hg) 83 05/06/2018 [facility] Respitory Rate 16 05/06/2018 [facility] Heart Rate 60 05/06/2018 [facility] Temperature Oral (F) 97.8 F 05/06/2018 [facility] Weight 131.364 01/02/2018 [facility] BMI Calculated 49.71 01/02/2018 [facility] Height 162.56 cm 01/02/2018 [facility] Systolic (mm Hg) 136 01/02/2018 [facility] Diastolic (mm Hg) 68 01/02/2018 [facility] Heart Rate 68 01/02/2018 [facility] Respitory Rate 16 01/02/2018 [facility] Temperature Oral (F) 97.2 F 01/02/2018 [facility] Weight 127.727 08/08/2017 [facility] BMI Calculated 48.33 08/08/2017 [facility] Respitory Rate 16 08/08/2017 [facility] Temperature Oral (F) 99.9 F 08/08/2017 [facility] Height 162.56 cm 08/08/2017 [facility] Systolic (mm Hg) 117 08/08/2017 [facility] Diastolic (mm Hg) 44 08/08/2017 [facility] Heart Rate 71 08/08/2017 [facility] Systolic (mm Hg) 142 08/05/2017 [facility] Diastolic (mm Hg) 72 08/05/2017 [facility] Respitory Rate 19 08/05/2017 [facility] Systolic (mm Hg) 140 08/05/2017 [facility] Diastolic (mm Hg) 62 08/05/2017 [facility] Respitory Rate 15 08/05/2017 [facility] Systolic (mm Hg) 140 08/05/2017 [facility] Diastolic (mm Hg) 62 08/05/2017 [facility] Respitory Rate 18 08/05/2017 [facility] Heart Rate 69 08/01/2017 [facility] Temperature Oral (F) 97.8 F 08/01/2017 [facility] Weight 128.636 08/01/2017 [facility] BMI Calculated 48.68 08/01/2017 [facility] Height 162.56 cm 08/01/2017 [facility] Weight 139.091 04/04/2017 [facility] Height 154.94 cm 04/04/2017 [facility] BMI Calculated 57.94 04/04/2017 [facility] Respitory Rate 14 04/04/2017 [facility] Heart Rate 76 04/04/2017 [facility] Temperature Oral (F) 98.7 F 04/04/2017 [facility] Systolic (mm Hg) 151 04/04/2017 [facility] Diastolic (mm Hg) 73 04/04/2017 [facility] Encounters Location Location Details Encounter Type Encounter Number Reason For Visit Attending Provider ADM Date DC Date Status Source Outpatient [id number] TASNEEM GUZMÁN 02/07/2016 Active [facility] Outpatient [id number] TASNEEM GUZMÁN 03/07/2016 Active [facility] Outpatient [id number] Tasneem Guzmán 03/19/2016 03/20/2016 [facility] Outpatient [id number] TASNEEM GUZMÁN 06/07/2016 [facility] Outpatient [id number] Kelvin Victoria 08/08/2016 08/09/2016 [facility] Outpatient [id number] Kelvin Victoria 08/15/2016 08/15/2016 [facility] Outpatient [id number] TASNEEM GUZMÁN 09/06/2016 [facility] Outpatient [id number] Kelvin Victoria 09/25/2016 09/25/2016 [facility] Outpatient [id number] TASNEEM GUZMÁN 12/06/2016 Active [facility] Outpatient [id number] TASNEEM GUZMÁN 04/04/2017 Active [facility] Outpatient [id number] Tasneem Guzmán 04/04/2017 04/05/2017 [facility] Outpatient [id number] Tasneem Guzmán 05/06/2017 05/07/2017 [facility] Phone Message [id number] 07/28/2017 07/30/2017 [facility] Bed[facility] Outpatient [id number] Kyara Sneed 08/05/2017 08/05/2017 [facility] Outpatient [id number] TASNEEM GUZMÁN 08/08/2017 Active [facility] Outpatient [id number] Tasneem Guzmán 08/08/2017 08/09/2017 [facility] Outpatient [id number] TASNEEM GUZMÁN 12/09/2017 Active [facility] Ambulatory Pre-Reg [id number] Tasneem Guzmán 12/09/2017 12/09/2017 [facility] Outpatient [id number] TASNEEM GUZMÁN 01/02/2018 Active [facility] Outpatient [id number] Tasneem Ramirez 01/02/2018 01/03/2018 [facility] Phone Message [id number] 01/15/2018 01/17/2018 [facility] Phone Message [phone] 01/27/2018 01/29/2018 [facility] [facility] Phone Message [id number] 03/20/2018 03/22/2018 [facility] Outpatient [id number] TASNEEM RAMIREZ 05/06/2018 Active [facility] Outpatient [id number] Tasneem Ramirez 05/06/2018 05/07/2018 [facility] Between Visit [id number] 05/07/2018 05/08/2018 [facility] Outpatient [id number] Tasneem Ramirez 05/22/2018 05/23/2018 [facility] Phone Message [id number] 08/24/2018 08/26/2018 [facility] Outpatient [id number] Tasneem Guzmán 09/03/2018 [facility] Outpatient [id number] Tasneem Guzmán 09/03/2018 09/04/2018 [facility] Procedures Procedure Code Date Perfomer Comments Source Bone density scan<sup>1, 2</sup> [id number] 05/22/2018 [facility] Mammogram<sup>3, 4</sup> [id number] 05/22/2018 There is no mammographic evidence of malignancy. A 1 year screening mammogram is recommended.(05/23/2019)There is no mammographic evidence of malignancy. A 1 year screening mammogram is recommended.(05/07/2018) [facility] Diabetic Retinopathy Study 7 field stereoscopic fundus photography<sup>1</sup> [id number] 11/04/[address], cataract Dr Gusman [facility] Diabetic Retinopathy Study 7 field stereoscopic fundus photography<sup>5</sup> [id number] 11/04/[address], cataract Dr Gusman [facility] Cataract surgery<sup>2</sup> [id number] 09/14/2017 right eye [facility] Cataract surgery<sup>6</sup> [id number] 09/14/2017 right eye [facility] Colonoscopy<sup>3</sup> [id number] 08/05/2017 Mild diverticulosis. Next one in [address] Sneed [facility] Colonoscopy<sup>1</sup> [id number] 08/05/2017 Mild diverticulosis. Next one in [address] Sneed [facility] Colonoscopy<sup>7</sup> [id number] 08/05/2017 Mild diverticulosis. Next one in [address] Sneed [facility] Cataract surgery<sup>4</sup> [id number] 07/15/2017 Left eye [facility] Cataract surgery<sup>8</sup> [id number] 07/15/2017 Left eye [facility] Mammogram<sup>5</sup> [id number] 05/06/2017 There is no mammographic evidence of malignancy. A 1 year screening mammogram is recommended.(05/07/2018) [facility] Mammogram<sup>2</sup> [id number] 05/06/2017 There is no mammographic evidence of malignancy. A 1 year screening mammogram is recommended.(05/07/2018) [facility] Mammogram<sup>1</sup> [id number] 05/06/2017 There is no mammographic evidence of malignancy. A 1 year screening mammogram is recommended.(05/07/2018) [facility] Examination of eye<sup>2</sup> [id number] 03/17/2017 per patient [facility] Examination of eye<sup>3</sup> [id number] 03/17/2017 per patient [facility] Bone density scan<sup>1</sup> [id number] 03/19/2016 [facility] Mammogram [id number] 03/19/2016 [facility] Bone density scan<sup>6</sup> [id number] 03/19/2016 Normal [facility] Bone density scan<sup>4</sup> [id number] 03/19/2016 Normal [facility] Bone density scan<sup>3</sup> [id number] 03/19/2016 [id number]<sup>4</sup> [id number] at age 50 [facility] Assessment and Plan No Data Provided for This Section Plan of Care No Data Provided for This Section Social History Social History Date Source Social History TypeResponse Substance Abuse Use: None. Alcohol Past Smoking Status Former smoker; Exposure to Tobacco Smoke None; Cigarette Smoking Last 365 Days No; Reg Smoking Cessation Counseling No entered on: 05/06/18 08/01/2017 [facility] Social History TypeResponse Substance Abuse Use: None. Alcohol Past Smoking Status Former smoker; Exposure to Tobacco Smoke None; Cigarette Smoking Last 365 Days No; Reg Smoking Cessation Counseling No entered on: 09/03/18 08/01/2017 [facility] Family History No Data Provided for This Section Advance Directives No Data Provided for This Section Functional Status No Data Provided for This Section
--- OUTSIDE RECORDS SUMMARY | 2018-11-23 06:54 | XMS REPORT | Summary of Care ---
Author Author [facility] Organization [facility] Address Unknown Phone Unavailable Encounter JOSIE Seo(WILLA) [id number] Date(s): 09/03/18 - 09/03/18 [facility] [address] [place] [address]- Discharge Disposition: Home or Self Care Attending Physician: Tasneem Vasques MD Vital Signs Most recent to 1 2 oldest [Reference Range]: Height 162.56 cm (09/03/18 9:49 AM) Temperature Oral 98.1 DegF [96.4-99.1 DegF] (09/03/18 9:49 AM) Blood Pressure 138/61 mmHg 145/77 mmHg [90-140/60-90 mmHg] (09/03/18 10:20 AM) *HI* (09/03/18 9:49 AM) Respiratory Rate 16 BRMIN [14-20 BRMIN] (09/03/18 9:49 AM) Peripheral Pulse 67 bpm Rate [60-100 bpm] (09/03/18 9:49 AM) Weight 130.909 kg (09/03/18 9:49 AM) Body Mass Index 49.54 m2 (09/03/18 9:49 AM) Problem List Condition Effective Dates Status Health Status Informant Benign Active hypertension(Confirm ed) Knee Active osteoarthritis(Confi rmed) Ventral Active hernia(Confirmed) Asthma(Confirmed) < 09/06/16 Resolved Mixed Active hyperlipidemia(Confi rmed) Morbid Active obesity(Confirmed) Obstructive sleep Active apnea(Confirmed) Diabetes mellitus Active type 2, controlled(Confirmed ) Allergies, Adverse Reactions, Alerts No Known Medication Allergies Medications amLODIPine 5 mg oral tablet 5 mg=1 tab, PO, BID, # 180 tab, 0 Refill(s), Pharmacy: [facility]/pharmacy #[id number] Start Date: 09/03/18 Status: Ordered gabapentin 300 mg oral capsule See Instructions, TAKE 1 CAPSULE BY MOUTH TWICE A DAY, # 180 tab, 1 Refill(s), [id number] Start Date: 09/03/18 Status: Ordered hydrochlorothiazide 12.5 mg oral capsule =1 cap, PO, BID, # 180 cap, 1 Refill(s), Pharmacy: [facility] #[id number] Start Date: 09/03/18 Stop Date: 03/02/19 Status: Ordered losartan 100 mg oral tablet 100 mg=1 tab, PO, Daily, # 90 tab, 1 Refill(s), Pharmacy: [facility] #[id number] Start Date: 09/03/18 Status: Ordered metFORMIN 850 mg oral tablet See Instructions, TAKE 1 TABLET TWICE DAILY WITH MEALS, # 180 tab, 1 Refill(s), Pharmacy: [facility] #[id number] Start Date: 09/03/18 Status: Ordered sertraline 100 mg oral tablet =1 tab, PO, Daily, # 90 tab, 1 Refill(s), Pharmacy: [facility] #[id number] Start Date: 09/03/18 Status: Ordered Results No data available for [...] Smoking Cessation Counseling No entered on: 09/03/18 Assessment and Plan No data available for this section
--- OUTSIDE RECORDS SUMMARY | 2018-11-23 06:54 | XMS REPORT | Summary of Care ---
Author Author [facility] Organization [facility] Address Unknown Phone Unavailable Encounter JOSIE Seo(WILLA) [id number] Date(s): 08/08/17 - 08/08/17 [facility] [address] [place] [address]- [phone] Discharge Disposition: Home or Self Care Attending Physician: Tasneem Vasques MD Vital Signs Most recent to 1 oldest [Reference Range]: Height 162.56 cm (08/08/17 10:03 AM) Temperature Oral 99.9 DegF [96.4-99.1 DegF] *HI* (08/08/17 10:03 AM) Blood Pressure 117/44 mmHg [90-140/60-90 mmHg] (08/08/17 10:03 AM) Respiratory Rate 16 BRMIN [14-20 BRMIN] (08/08/17 10:03 AM) Peripheral Pulse 71 bpm Rate [60-100 bpm] (08/08/17 10:03 AM) Weight 127.727 kg (08/08/17 10:03 AM) Body Mass Index 48.33 m2 (08/08/17 10:03 AM) Problem List Condition Effective Dates Status [...] BID, # 180 tab, 1 Refill(s), Pharmacy: [facility]/pharmacy #[id number] Start Date: 08/08/17 Status: Ordered aspirin 81 mg tablet, enteric coated 81 mg=1 tab, PO, Daily, # 90 tab, 1 Refill(s), [id number] Start Date: 08/08/17 Stop Date: 02/04/18 Status: Ordered gabapentin 300 mg oral capsule See Instructions, TAKE 1 CAPSULE BY MOUTH TWICE A DAY, # 180 tab, 1 Refill(s), [id number] Start Date: 08/08/17 Status: Ordered hydrochlorothiazide 12.5 mg oral capsule See Instructions, Take 1 tablet twice a day, # 180 tab, 1 Refill(s), [id number] Start Date: 08/08/17 Status: Ordered levalbuterol 0.63 mg/3 mL inhalation solution 0.63 mg=3 mL, NEB, Q6H, PRN as need for shortness of breath, as needed for cough , # 360 mL, 8 Refill(s), Pharmacy: [facility] #[id number] Start Date: 08/08/17 Status: Ordered losartan 100 mg oral tablet See Instructions, TAKE 1 TABLET BY MOUTH EVERY DAY, # 90 tab, 1 Refill(s), Pharm acy: [facility] #[id number] Start Date: 08/08/17 Status: Ordered metFORMIN 850 mg oral tablet See Instructions, TAKE 1 TABLET TWICE DAILY WITH MEALS, # 180 tab, 1 Refill(s), Pharmacy: [facility] #[id number] Start Date: 08/08/17 Status: Ordered sertraline 100 mg oral tablet See Instructions, TAKE 1 TABLET BY MOUTH EVERY DAY, # 30 tab, 4 Refill(s), Pharm acy: [facility] #[id number] Start Date: 08/08/17 Status: Ordered Results No data available for [...]
--- OUTSIDE RECORDS SUMMARY | 2018-11-23 06:54 | XMS REPORT | Summary of Care ---
Author Author [facility] Organization [facility] Address Unknown Phone Unavailable Encounter HQ Kary_stacy(FIN) [id number] Date(s): 01/15/18 - 01/16/18 [facility] [address] [place] [address]- Vital Signs No data available for this [...] Allergies Medications amLODIPine 5 mg oral tablet =1 tab, PO, Daily, # 90 tab, Refill(s) 1, [id number] Start Date: 07/06/18 Status: Ordered amLODIPine 5 mg oral tablet 5 mg=1 tab, PO, Daily, # 90 tab, 1 Refill(s), [id number] Start Date: 01/15/18 Stop Date: 05/06/18 Status: Discontinued Results No data available for this section [...]
--- OUTSIDE RECORDS SUMMARY | 2018-11-23 06:54 | XMS REPORT ---
Author Author [facility] Address Unknown Phone Unavailable Care Team Providers Care Product Support Consultant Name Role Phone Young LIMON Unavailable Unavailable Problems This patient has no known problems. Allergies, Adverse Reactions, Alerts This patient has no known allergies or adverse reactions. Medications This patient has no known medications. Results Test Description Test Time Test Comments Text Results Atomic Results Result Comments CHEST 2 VIEWS 2018-11-13 12:32:00 [place] [address] Patient Name: SHADE LUGO MR #: [id number] : 1950 Age/Sex: 67/F Req #: [id number] Adm Physician: Ordered by: SHAHLA LIMON MD Report #: [id number] Location: OR Room/Bed: Procedure: [id number] DX/CHEST 2 VIEWS Exam Date: Exam Time: REPORT STATUS: Signed Chest, 2 views, 11/13/2018. History: Preop, ventral hernia. Comparison: None available. Findings: The cardiomediastinal silhouette and pulmonary vasculature are within normal limits. The lungs are clear without evidence of consolidation or pleural effusion. There are no acute osseous or soft tissue abnormalities. Impression: No acute cardiopulmonary abnormality. Signed by: Ben Chung on 11/13/2018 12:33 PM Dictated By: BEN CHUNG MD [id number] Transcribed By: URIAH on 11/13/18 1233 COPY TO: SHAHLA LIMON MD
--- OUTSIDE RECORDS SUMMARY | 2018-11-23 06:54 | XMS REPORT | Summary of Care ---
Author Author [facility] Organization [facility] Address Unknown Phone Unavailable Encounter HQ Lupentr_aliromel(FIN) [id number] Date(s): 03/20/18 - 03/21/18 [facility] [address] [place] [address]- Vital Signs No data available for this section Problem List Condition Effective Dates Status Health Status Informant Benign Active hypertension(Confirm ed) Knee Active osteoarthritis(Confi rmed) Ventral Active hernia(Confirmed) Asthma(Confirmed) < 09/06/16 Resolved Mixed Active hyperlipidemia(Confi rmed) Morbid Active obesity(Confirmed) Obstructive sleep Active apnea(Confirmed) Diabetes mellitus Active type 2, controlled(Confirmed ) Allergies, Adverse Reactions, Alerts No Known Medication Allergies Medications sertraline 100 mg oral tablet 100 mg=1 tab, PO, Daily, # 90 tab, 0 Refill(s), [id number] Start Date: 03/20/18 Stop Date: 06/21/18 Status: Completed sertraline 100 mg oral tablet =1 tab, PO, Daily, # 90 tab, [id number] Start Date: 06/21/18 Stop Date: 09/03/18 Status: Discontinued Results No data available for [...]
--- OUTSIDE RECORDS SUMMARY | 2018-11-23 06:54 | XMS REPORT | Summary of Care ---
Author Author [facility] Organization [facility] Address Unknown Phone Unavailable Encounter HQ Gabbi(FIN) [id number] Date(s): 07/28/17 - 07/29/17 [facility] [address] [place] [address]- [phone] Vital Signs No data available for this [...] BID, # 180 tab, 1 Refill(s), Pharmacy: [facility] #[id number] Start Date: 07/28/17 Status: Ordered Results No data available for [...]
--- OUTSIDE RECORDS SUMMARY | 2018-11-23 06:54 | XMS REPORT | Summary of Care ---
Author Author [facility] Organization [facility] Address Unknown Phone Unavailable Encounter HQ Gabbi(FIN) [id number] Date(s): 08/24/18 - 08/25/18 [facility] [address] [place] [address]- [phone] Vital Signs No data available for this [...] BID, # 180 tab, 0 Refill(s), Pharmacy: [facility]/pharmacy #5970 Start Date: 08/24/18 Status: Ordered Results No data available for [...]
--- OUTSIDE RECORDS SUMMARY | 2018-11-23 06:54 | XMS REPORT | Summary of Care ---
Author Author [facility] Organization [facility] Address Unknown Phone Unavailable Encounter JOSIE Seo(WILLA) [id number] Date(s): 05/22/18 - 05/22/18 [facility] [address] [place] [address]- Discharge Disposition: Home or Self Care Attending [...]
--- OUTSIDE RECORDS SUMMARY | 2018-11-23 06:54 | XMS REPORT | Summary of Care ---
Author Author [facility] Organization [facility] Address Unknown Phone Unavailable Encounter JOSIE Seo(FIN) [id number] Date(s): 12/09/17 - 12/09/17 [facility] [address] [place] [address]- Attending Physician: Tasneem Vasques MD Vital Signs No [...]
[2018-11-23] MEDS ORDERED: BUPIVACAINE 0.25%/EPI 30ML SDV INJ ONE (07:13)
[2018-11-23] MEDS: SODIUM CHLORIDE 0.9% 1000ML 1,000 ML IV SCH ×2 (11:07→18:53)
[2018-11-23] MEDS ORDERED: HYDROMORPHONE 1MG/1ML INJ IV PRN (11:15)
[2018-11-23] MEDS ORDERED: ONDANSETRON HCL INJ 2MG/ML 2ML 2 MG/ML VIAL IV PRN (11:15)
--- OUTSIDE RECORDS SUMMARY | 2018-11-23 11:44 | XMS REPORT | Continuity of Care Document ---
Author Author Pingwyn Organization [employer] Address Unknown Phone Unavailable Care Team Providers Care Rolled Ham Lacer Name Role Phone [employer] [facility] Unavailable Unavailable Problems Problem Status Onset Date Classification Date Reported Comments Source ROUTINE MAMMO - NO SYMPTOMS, OSTEOPOROSI Active 05/08/2018 [facility] UNK Active 07/18/2017 [facility] Encounter for screening mammogram for malignant neoplasm of breast 05/08/2017 08/12/2017 [facility] SCREENING Active 04/08/2017 [facility] Asthma (disorder) Resolved 09/06/2016 Problem 10/09/2018 [facility] CPAP [id number] Active 09/03/2016 [facility] FIRST NIGHT 98622 Active 08/13/2016 [facility] R06.02 Active 08/08/2016 [facility] DX: SCREENING MAMMO/OSTEOPOROSIS WILL Active 02/09/2016 [facility] Hypercholesterolemia (disorder) Active Problem 08/12/2017 [facility] Depressive disorder (disorder) Active Problem 08/08/2017 [facility] Type II diabetes mellitus uncontrolled (finding) Active Problem 08/08/2017 [facility] Benign hypertension (disorder) Active Problem 10/09/2018 [facility] Osteoarthritis of knee (disorder) Active Problem 10/09/2018 [facility] Mixed hyperlipidemia (disorder) Active Problem 10/09/2018 [facility] Morbid obesity (disorder) Active Problem 10/09/2018 [facility] Obstructive sleep apnea syndrome (disorder) Active Problem 10/09/2018 [facility] Sleep apnea (finding) Active Problem 08/28/2018 [facility] Diabetes mellitus type 2 (disorder) Active Problem 10/09/2018 [facility] Acute bronchitis (disorder) Active Problem 03/22/2016 [facility] Diabetes mellitus (disorder) Active Problem 08/08/2017 [facility] Hypertensive disorder, systemic arterial (disorder) Active Problem 08/08/2017 [facility] Hernia of anterior abdominal wall (disorder) Active Problem 10/09/2018 [facility] ENCNTR SCREEN MAMMOGRAM FOR MALIGNANT NE Active [facility] AGE-RELATED OSTEOPOROSIS W/O CURRENT PAT Active [facility] SHORTNESS OF BREATH Active [facility] OBSTRUCTIVE SLEEP APNEA (ADULT) (PEDIATR Active [facility] Medications Medication Details Route Status Patient Instructions Ordering Provider Order Date Source sertraline 100 mg oral tablet =1 tab, PO, Daily, # 90 tab, 1 Refill(s), [id number] 09/03/[facility] Metformin hydrochloride 850 MG Oral Tablet See Instructions, TAKE 1 TABLET TWICE DAILY WITH MEALS, # 180 tab, 1 Refill(s), [id number] Active 09/03/2018 [facility] losartan 100 mg oral tablet 100 mg=1 tab, PO, Daily, # 90 tab, 1 Refill(s), [id number] Active 09/03/2018 [facility] Hydrochlorothiazide 12.5 MG Oral Capsule =1 cap, PO, BID, # 180 cap, 1 Refill(s), [id number] Active 09/03/2018 [facility] gabapentin 300 MG Oral Capsule See Instructions, TAKE 1 CAPSULE BY MOUTH TWICE A DAY, # 180 tab, 1 Refill(s), [id number] Active 09/03/2018 [facility] amLODIPine 5 mg oral tablet 5 mg=1 tab, PO, BID, # 180 tab, 0 Refill(s), [id number] Active 09/03/2018 [facility] amLODIPine 5 mg oral tablet 5 mg=1 tab, PO, BID, # 180 tab, 0 Refill(s), [id number] Active 08/24/2018 [facility] amLODIPine 5 mg oral tablet =1 tab, PO, Daily, # 90 tab, Refill(s) 1, [id number] Active 07/06/2018 [facility] sertraline 100 mg oral tablet =1 tab, PO, Daily, # 90 tab, [id number] No Longer Active 06/21/2018 [facility] sertraline 100 mg oral tablet 100 mg=1 tab, PO, Daily, # 90 tab, 0 Refill(s), [id number] No Longer Active 03/20/2018 [facility] losartan 100 mg oral tablet 100 mg=1 tab, PO, Daily, # 90 tab, 1 Refill(s), [id number] Active 01/28/2018 [facility] amLODIPine 5 mg oral tablet 5 mg=1 tab, PO, Daily, # 90 tab, 1 Refill(s), Pharmacy: [facility] #[id number] No Longer Active 01/15/2018 [facility] sertraline 100 mg oral tablet See Instructions, TAKE 1 TABLET BY MOUTH EVERY DAY, # 30 tab, 4 Refill(s), [id number] No Longer Active 01/02/2018 [facility] Metformin hydrochloride 850 MG Oral Tablet See Instructions, TAKE 1 TABLET TWICE DAILY WITH MEALS, # 180 tab, 1 Refill(s), Pharmacy: [facility] #[id number] Active 01/02/2018 [facility] losartan 100 mg oral tablet See Instructions, TAKE 1 TABLET BY MOUTH EVERY DAY, # 90 tab, 1 Refill(s), Pharmacy: [facility] #[id number] No Longer Active 01/02/2018 [facility] Hydrochlorothiazide 12.5 MG Oral Capsule See Instructions, Take 1 tablet twice a day, # 180 tab, 1 Refill(s), [id number] Active 01/02/2018 [facility] gabapentin 300 MG Oral Capsule See Instructions, TAKE 1 CAPSULE BY MOUTH TWICE A DAY, # 180 tab, 1 Refill(s), Pharmacy: [facility] #[id number] Active 01/02/2018 [facility] amLODIPine 5 mg oral tablet 5 mg=1 tab, PO, BID, # 180 tab, 1 Refill(s), [id number] No Longer Active 01/02/2018 [facility] sertraline 100 mg oral tablet See Instructions, TAKE 1 TABLET BY MOUTH EVERY DAY, # 30 tab, 4 Refill(s), [id number] Active 08/08/2017 [facility] Metformin hydrochloride 850 MG Oral Tablet See Instructions, TAKE 1 TABLET TWICE DAILY WITH MEALS, # 180 tab, 1 Refill(s), [id number] Active 08/08/2017 [facility] losartan 100 mg oral tablet See Instructions, TAKE 1 TABLET BY MOUTH EVERY DAY, # 90 tab, 1 Refill(s), [id number] Active 08/08/2017 [facility] levalbuterol 0.63 mg/3 mL inhalation solution 0.63 mg=3 mL, NEB, Q6H, PRN as need for shortness of breath, as needed for cough, # 360 mL, 8 Refill(s), [id number] Active 08/08/2017 [facility] Hydrochlorothiazide 12.5 MG Oral Capsule See Instructions, Take 1 tablet twice a day, # 180 tab, 1 Refill(s), [id number] Active 08/08/2017 [facility] gabapentin 300 MG Oral Capsule See Instructions, TAKE 1 CAPSULE BY MOUTH TWICE A DAY, # 180 tab, 1 Refill(s), [id number] Active 08/08/2017 [facility] Aspirin 81 MG Enteric Coated Tablet 81 mg=1 tab, PO, Daily, # 90 tab, 1 Refill(s), [id number] Active 08/08/2017 [facility] amLODIPine 5 mg oral tablet 5 mg=1 tab, PO, BID, # 180 tab, 1 Refill(s), [id number] Active 08/08/2017 [facility] Vitamin D3 PO, Daily, 0 Refill(s) Active 08/01/2017 [facility] One-A-Day Women oral tablet 1 tab, PO, Daily, 0 Refill(s) Active 08/01/2017 [facility] amLODIPine 5 mg oral tablet 5 mg=1 tab, PO, BID, # 180 tab, 1 Refill(s), [id number] Active 07/29/2017 [facility] ADVANCED GLUCOSE TEST STR See Instructions, # 100 strip, Refill(s) 11, CHECK BLOOD GLUCOSE ONCE A DAY, [id number] Active 05/26/2017 [facility] sertraline 100 mg oral tablet See Instructions, TAKE 1 TABLET BY MOUTH EVERY DAY, # 30 tab, 4 Refill(s), [id number] Active 04/04/2017 [facility] Metformin hydrochloride 850 MG Oral Tablet See Instructions, TAKE 1 TABLET TWICE DAILY WITH MEALS, # 180 tab, 1 Refill(s), [id number] Active 04/04/2017 [facility] losartan 100 mg oral tablet See Instructions, TAKE 1 TABLET BY MOUTH EVERY DAY, # 30 tab, 4 Refill(s), [id number] Active 04/04/2017 [facility] Hydrochlorothiazide 12.5 MG Oral Capsule See Instructions, TAKE ONE CAPSULE BY MOUTH DAILY, # 90 tab, 1 Refill(s), [id number] Active 04/04/2017 [facility] gabapentin 300 MG Oral Capsule See Instructions, TAKE 1 CAPSULE BY MOUTH TWICE A DAY, # 180 tab, 1 Refill(s), [id number] Active 04/04/2017 [facility] amLODIPine 5 mg oral tablet 5 mg=1 tab, PO, BID, # 180 tab, 1 Refill(s), [id number] Active 04/04/2017 [facility] Aspirin 81 MG Enteric Coated Tablet 81 mg=1 tab, PO, Daily, # 90 tab, 1 Refill(s), [id number] Active 04/04/2017 [facility] Allergies, Adverse Reactions, Alerts Substance Category Reaction Severity Reaction type Status Date Reported Comments Source No Known Medication Allergies Assertion Drug allergy [facility] Immunizations Immunization Date Given Site Status Last Updated Comments Source influenza virus vaccine, inactivated<sup>1</sup> 01/02/2018 Right Deltoid completed [facility] Result Comment: Patient waited 15 min with no reaction. [facility] influenza virus vaccine, inactivated<sup>2</sup> 12/06/2016 Left Deltoid completed [facility] Result Comment: Patient waited 15 minutes, no allergic reaction. [facility] influenza virus vaccine, inactivated<sup>1</sup> 12/06/2016 Left Deltoid completed [facility] Result Comment: Patient waited 15 minutes, no allergic reaction. [facility] influenza virus vaccine, inactivated 02/07/2016 Right Deltoid completed [facility] pneumococcal 23-valent vaccine 03/17/2013 completed [facility] Results Order Name Results Value Reference [...] should be multiplied by the estimated BMI. [facility] CHEM PANEL CO2 28 24 - 32 08/01/2017 [facility] CHEM PANEL Calcium Lvl 8.9 8.5 - 10.5 08/01/2017 [facility] CHEM PANEL AGAP 11.9 10.0 - 20.0 08/01/2017 [facility] CHEM PANEL Creatinine Lvl 0.89 0.50 - 1.40 08/01/2017 [facility] CHEM PANEL BUN 16 7 - 22 08/01/2017 [facility] CHEM PANEL Glucose Lvl 121 70 - 99 08/01/2017 [facility] CHEM PANEL Chloride Lvl 104 95 - 109 08/01/2017 [facility] CHEM PANEL Potassium Lvl 3.9 3.5 - 5.1 08/01/2017 [facility] CHEM PANEL Sodium Lvl 140 135 - 145 08/01/2017 [facility] Pathology Reports No Data Provided for This Section Diagnostic Reports Report Value Date Source Breast Mammo Scrn VENKATESH incl CAD MA BILATERAL DIGITAL SCREENING MAMMOGRAM WITH CAD: 05/22/2018 CLINICAL: /Routine. Current study was evaluated with a Computer Aided Detection (CAD) system. COMPARISON:Comparison is made to exams dated: 05/06/2017 mammogram, 03/19/2016 mammogram - [facility], and 09/19/2014 mammogram. TECHNIQUE: Mammographic views were obtained using digital acquisition. [employer] Version 1.3 was utilized for computer aided [...] is recommended.(05/23/2019) This exam was interpreted at [id number] for [facility] Breast [place]. Gale Porter M.D. ap/penrad:05/22/2018 12:16:12 Clinical Engineering Director(s): Lili Dodson, [facility] letter sent: BI-RADS 1/2 Mammogram BI-RADS: 2 Benign 05/22/2018 [facility] Bone Density Scan Study: Bone Density Scan Clinical Indication: Osteoporosis screening; Images of the axial lumbar spine and left hip have been performed using [employer] SL scanner. COMPARISON: 03/19/2016 FINDINGS: The [...] standard deviations below peak bone mass. SL: [id number] 05/22/2018 [facility] Breast Mammo Scrn VENKATESH incl CAD MA BILATERAL DIGITAL SCREENING MAMMOGRAM WITH CAD: 05/06/2017 Current study was evaluated with a Computer Aided Detection (CAD) system. COMPARISON:Comparison is made to exams dated: 03/19/2016 mammogram - [facility] and 09/19/2014 mammogram. TECHNIQUE: Mammographic views were obtained using digital acquisition. [employer] Version 1.3 was utilized for computer aided [...] is recommended.(05/07/2018) This exam was interpreted at [id number] for [facility]. Danny gould/penrad:05/06/2017 10:08:33 Clinical Engineering Director(s): Ana Isabel, [facility] letter sent: BI-RADS 1/2 Mammogram BI-RADS: 2 Benign 05/06/2017 [facility] Chest 2 views DX Patient Name: SHADE LUGO : 1950; Age: 65 years y/o Female MR: [id number] * CHEST, 2 views HISTORY: - [id number].o2 [...] hemidiaphragms, possible chronic obstructive pulmonary disease. SL: [id number] 08/08/2016 [facility] Digital Mammo Screening Venkatesh MA - [...] screening mammogram is recommended. Danny gould/penrad:03/21/2016 11:03:09 Clinical Engineering Director: Blanca Segundo, [facility] This exam was dictated and interpreted by [id number] for [facility]. letter sent: Normal exam Mammogram BI-RADS: 2 Benign 03/19/2016 [facility] Bone Density Scan Study: Bone Density [...] below peak bone mass. SL: [id number] 03/19/2016 [facility] Consultation Notes No Data Provided for [...] 62 08/05/2017 [facility] Resp[facility] Rate 18 08/05/2017 [facility] Heart Rate 69 08/01/2017 [facility] Temperature [...] ADM Date DC Date Status Source Outpatient [id number] TASNEEM GUZMÁN 02/07/2016 Active [facility] Outpatient [id number] TASNEEM GUZMÁN 03/07/2016 Active [facility] Outpatient [id number] Tanseem Guzmán 03/19/2016 03/20/2016 [facility] Outpatient [id number] TASNEEM GUZMÁN 06/07/2016 [facility] Outpatient [id number] Kelvin Victoria 08/08/2016 08/09/2016 [facility] Outpatient [id number] Kelvin Victoria 08/15/2016 08/15/2016 [facility] Outpatient [id number] TASNEEM GUZMÁN 09/06/2016 [facility] Outpatient [id number] Kelvin Victoria 09/25/2016 09/25/2016 [facility] Outpatient [id number] TASNEEM GUZÁMN 12/06/2016 Active [facility] Outpatient [id number] TASNEEM GUZMÁN 04/04/2017 Active [facility] Outpatient [id number] Tasneem Guzmán 04/04/2017 04/05/2017 [facility] Outpatient [id number] Tasneem Guzmán 05/06/2017 05/07/2017 [facility] Phone Message [id number] 07/28/2017 07/30/2017 Medical [facility] Bedded Outpatient [id number] Kyara Sneed 08/05/2017 08/05/2017 [facility] Outpatient [id number] TASNEEM GUZMÁN 08/08/2017 Active [facility] Outpatient [id number] Tasneem Guzmán 08/08/2017 08/09/2017 [facility] Outpatient [id number] TASNEEM GUZMÁN 12/09/2017 Active [facility] Pre-Reg [id number] Tasneem Guzmán 12/09/2017 12/09/2017 [facility] Outpatient [id number] TASNEEM GUZMÁN 01/02/2018 Active [facility] Outpatient [id number] Tasneem Ramirez 01/02/2018 01/03/2018 [facility] Phone Message [id number] 01/15/2018 01/17/2018 [facility] Phone Message [id number] 01/27/2018 01/29/2018 [facility] Phone Message [id number] 03/20/2018 03/22/2018 Medical [facility] Outpatient [id number] TASNEEM RAMIREZ 05/06/2018 Active [facility] Outpatient [id number] Tasneem Ramirez 05/06/2018 05/07/2018 [facility] Between Visit [id number] 05/07/2018 05/08/2018 [facility] Outpatient [id number] Tasneem Ramirez 05/22/2018 05/23/2018 [facility] Phone Message [id number] 08/24/2018 08/26/2018 Medical [facility] Outpatient [id number] Tasneem Guzmán 09/03/2018 [facility] Outpatient [id number] Tasneem Guzmán 09/03/2018 09/04/2018 [facility] Procedures Procedure Code Date Perfomer Comments Source Bone density scan<sup>1, 2</sup> [id number] 05/22/2018 [facility] Mammogram<sup>3, 4</sup> [id number] 05/22/2018 There is no mammographic evidence of malignancy. A 1 year screening mammogram is recommended.(05/23/2019)There is no mammographic evidence of malignancy. A 1 year screening mammogram is recommended.(05/07/2018) [facility] Diabetic Retinopathy Study 7 field stereoscopic fundus photography<sup>1</sup> [id number] 11/04/2017 [address], cataract Dr Gusman [facility] Diabetic Retinopathy Study 7 field stereoscopic fundus photography<sup>5</sup> [id number] 11/04/[address], cataract Dr Gusman [facility] Cataract surgery<sup>2</sup> [id number] 09/14/2017 right eye [facility] Cataract surgery<sup>6</sup> [id number] 09/14/2017 right eye [facility] Colonoscopy<sup>3</sup> [id number] 08/05/2017 Mild diverticulosis. Next one in [address] Sneed [facility] Colonoscopy<sup>1</sup> [id number] 08/05/2017 Mild diverticulosis. Next one in [address] Sneed [facility] Colonoscopy<sup>7</sup> [id number] 08/05/2017 Mild diverticulosis. Next one in [address] Sneed [facility] Cataract surgery<sup>4</sup> [id number] 07/15/2017 Left eye Medical [facility] Cataract surgery<sup>8</sup> [id number] 07/15/2017 Left eye [facility] Mammogram<sup>5</sup> [id number] 05/06/2017 There is no mammographic evidence of malignancy. A 1 year screening mammogram is recommended.(05/07/2018) [facility] Mammogram<sup>2</sup> [id number] 05/06/2017 There is no mammographic evidence of malignancy. A 1 year screening mammogram is recommended.(05/07/2018) [facility] Mammogram<sup>1</sup> [id number] 05/06/2017 There is no mammographic evidence of malignancy. A 1 year screening mammogram is recommended.(05/07/2018) [facility] Examination of eye<sup>2</sup> [id number] 03/17/2017 per patient Medical [facility] Examination of eye<sup>3</sup> [id number] 03/17/2017 per patient [facility] Bone density scan<sup>1</sup> [id number] 03/19/2016 Normal [facility] Mammogram [id number] 03/19/2016 [facility] Bone density scan<sup>6</sup> [id number] 03/19/2016 Normal [facility] Bone density scan<sup>4</sup> [id number] 03/19/2016 Normal [facility] Bone density scan<sup>3</sup> [id number] 03/19/2016 [id number]sup[facility]sup> [id number] at age 50 [facility] Assessment and Plan No Data Provided for This Section Plan of Care No Data Provided for This Section Social History Social History Date Source Social History TypeResponse Substance Abuse Use: None. Alcohol Past Smoking Status Former smoker; Exposure to Tobacco Smoke None; Cigarette Smoking Last 365 Days No; Reg Smoking Cessation Counseling No entered on: 05/06/18 08/01/2017 [facility] Social History TypeResponse Substance Abuse Use: None. Alcohol Past Smoking Status Former smoker; Exposure to Tobacco Smoke None; Cigarette Smoking Last 365 Days No; Reg Smoking Cessation Counseling No entered on: 09/03/18 08/01/2017 [facility] Family History No Data Provided for This Section Advance Directives No Data Provided for This Section Functional Status No Data Provided for This Section
[2018-11-23] MEDS ORDERED: INSULIN REGULAR, HUMAN 100 UNIT/1 ML 3ML VIAL SQ SCH (12:00)
--- NOTE | 2018-11-23 12:02 | Operative Report ---
DATE OF PROCEDURE: 11/23/2018 SURGEON: Dennis Mccain MD PREOPERATIVE DIAGNOSIS: Incarcerated ventral hernia. POSTOPERATIVE DIAGNOSIS: Incarcerated ventral hernia. OPERATION PERFORMED: Repair of incarcerated ventral hernia with mesh. ANESTHESIA: General. COMPLICATIONS: None. ESTIMATED BLOOD LOSS: 25 mL. DESCRIPTION OF PROCEDURE: With the patient lying in bed in the supine position, under good general endotracheal anesthesia, the abdomen was prepped with Betadine solution and draped in the usual manner. A midline incision was made above and below the umbilicus, and carried down through the subcutaneous tissue, immediately a large hernia sac was encountered, this was dissected all the way around the umbilicus was then from the hernia sac and the hernia sac was then opened, there was a large amount of incarcerated omentum contained within the hernia sac, this was from the hernia sac and the hernia sac was sent for examination. The omentum was then slowly and carefully freed up all the way around and we were able to reduce it back to the intraabdominal cavity. After this was done, examination did not reveal any other intra-abdominal adhesions. The patient is obese and diabetic, and the fascia was not of the best quality, so we decided that mesh would be necessary to repair. A Physiomesh was then placed intra-abdominally and tacked in all 6 corners using #1 Prolene in a full-thickness fashion of the abdominal wall. After this was done, the mesh was then tacked all the way around with a Tacker, this gave us a satisfactory placement of the mesh without any tension. The defect of the hernia sac was then closed transversely using interrupted sutures of 0 Ethibond and a running 0 Vicryl, the whole area was then thoroughly irrigated. Perfect hemostasis was ascertained. The fascia was then infiltrated with 0.25% Marcaine. The umbilicus was then tacked back down to the midline fascia with 3-0 Vicryl. The subcutaneous tissue was approximated with 2-0 Vicryl and the skin was closed with clips. A dressing was applied. The sponge, lap, and needle count were correct. The patient tolerated the procedure well and returned to the recovery room in stable condition. MD JONAH Porter/[facility] /[id number]
[2018-11-23] MEDS ORDERED: PANTOPRAZOLE 40 MG 10ML VIAL IV SCH (13:00)
--- NOTE | 2018-11-23 13:10 | NUR ---
Patient admitted to unit from PACU. Patient is post op ventral hernia repair with mesh. Abdominal binder in place with microfoam tape dressing. Lung mandujano clear to auscultation. Bowel sounds present x4 but hypoactive. No edema noted. Bilateral SCD's in place. Right hand 20G IV in place. No s/s of distress noted
[2018-11-23 13:52] VITALS: BP 168/73
[2018-11-23] MEDS ORDERED: CEFAZOLIN SOD 1 GM/NS 50ML 50 ML IV SCH (14:00)
[2018-11-23 14:02] VITALS: BP 168/73
[2018-11-23] MEDS ORDERED: CEFAZOLIN SOD 1 GM VIAL ONE (14:30)
[2018-11-23] MEDS ORDERED: NEOSTIGMINE 5 MG/5ML SYR ONE (14:30)
[2018-11-23] MEDS ORDERED: LIDOCAINE HCL 2% LOCAL INJ 5 ML SDV VIAL INJ ONE (14:30)
[2018-11-23] MEDS ORDERED: ATROPINE SULFATE 1 MG/ML VIAL ONE (14:30)
[2018-11-23] MEDS ORDERED: ONDANSETRON HCL INJ 2MG/ML 2ML 2 MG/ML VIAL ONE (14:30)
[2018-11-23] MEDS ORDERED: DEXAMETHASONE SOD PHOS INJ 4 MG/ML VIAL ONE (14:30)
[2018-11-23] MEDS ORDERED: KETOROLAC TROMETHAMINE 30 MG/ML VIAL ONE (14:30)
[2018-11-23] MEDS ORDERED: PROPOFOL IV EMULSION 10 MG/ML 20 ML VIAL ONE (14:30)
[2018-11-23] MEDS ORDERED: SEVOFLURANE INHAL SOLN 250 ML PEN BTL ONE (14:30)
[2018-11-23] MEDS ORDERED: ACETAMINOPHEN 1000 MG/100 ML IV ONE (14:30)
[2018-11-23] MEDS ORDERED: ROCURONIUM BROMIDE 10 MG/ML 5ML VIAL ONE (14:30)
--- NOTE | 2018-11-23 16:15 | NUR ---
Patient transported back to room from heart cath. Respiration even and unlabored without SOB. Right radial pulse palpable strong. No bleeding noted. Clear dressing on right wrist intact, dry. Patient given education regarding immobilizing the right hand. Verbalized understanding.
[2018-11-23 16:35] VITALS: BP 141/70
[2018-11-23] MEDS: CEFAZOLIN SOD 1 GM/NS 50ML 50 ML IV SCH ×2 (16:36→23:31)
[2018-11-23] MEDS: INSULIN REGULAR, HUMAN 100 UNIT/1 ML 3ML VIAL SQ SCH ×2 (16:42→21:00)
[2018-11-23] MEDS: AMLODIPINE BESYLATE 5 MG TAB PO SCH (16:48)
[2018-11-23] MEDS: GABAPENTIN 300 MG CAP PO SCH (16:48)
[2018-11-23] MEDS ORDERED: MIDAZOLAM HCL 2 MG/2 ML VIAL ONE (18:28)
[2018-11-23] MEDS ORDERED: FENTANYL CITRATE/PF 100MCG/2 ML INJ ONE (18:28)
--- NOTE | 2018-11-23 19:00 | NUR ---
received report from day nurse. patient is resting comfortably in bed. bed is in lowest position and call quan is within reach. will continue to monitor patient.
--- NOTE | 2018-11-23 19:08 | NUR ---
Report given to slot shift supervisor nurse. patient lying in bed with eyes open. Respiration even and unlabored without SOB. Call light in reach
[2018-11-23 19:42] VITALS: BP 146/67
[2018-11-23] MEDS: ACETAMINOPHEN 1000 MG/100 ML IV PRN ×2 (20:12→21:00)
[2018-11-23 20:24] VITALS: BP 146/67
[2018-11-23] MEDS ORDERED: SERTRALINE HCL 100 MG TAB PO SCH (21:00)
[2018-11-24] VITALS: BP 137/62
[2018-11-24 04:00] VITALS: BP 167/74
[2018-11-24] MEDS: ACETAMINOPHEN 1000 MG/100 ML IV PRN (05:35)
[2018-11-24 06:21] LABS: BASOPHILS % 0.1 % (0.0-1.0); EOSINOPHILS % 0.3 % (0.0-6.0); HEMATOCRIT 31.6 % (34.2-44.1); HEMOGLOBIN 9.5 g/dL (12.0-16.0); LYMPHOCYTES # (AUTO) 1.4 (1.0-3.2); LYMPHOCYTES % 15.1 % (18.0-39.1); MEAN CORPUSCULAR HEMOGLOBIN 25.5 pg (28-32); MEAN CORPUSCULAR HGB CONC 30.1 g/dL (31-35); MEAN CORPUSCULAR VOLUME 84.7 fL (81-99); MONOCYTES # (AUTO) 0.6 (0.2-0.8); MONOCYTES % 6.8 % (4.4-11.3); NEUTROPHILS # (AUTO) 7.2 (2.1-6.9); NEUTROPHILS % 77.3 % (38.7-80.0); PLATELET COUNT 251 x10e3/uL (140-360); RED BLOOD COUNT 3.73 x10e6/uL (3.6-5.1)
[2018-11-24 06:47] LABS: ANION GAP 13.7 mmol/L (8-16); BLOOD UREA NITROGEN 19 mg/dL (7-26); BUN/CREATININE RATIO 22 (6-25); CALCIUM 8.8 mg/dL (8.4-10.2); CARBON DIOXIDE 24 mmol/L (22-29); CHLORIDE 105 mmol/L (98-107); CREATININE, SERUM 0.85 mg/dL (0.57-1.11); EST GLOMERULAR FILTRATION RATE > 60 ML/MIN (60-); GLUCOSE 131 mg/dL (74-118); POTASSIUM 3.7 mmol/L (3.5-5.1); SODIUM 139 mmol/L (136-145)
--- NOTE | 2018-11-24 06:58 | NUR ---
report given to day nurse. patient is resting comfortably in bed, bed is in lowest position and call quan is within reach
[2018-11-24] MEDS: SODIUM CHLORIDE 0.9% 1000ML 1,000 ML IV SCH (07:00)
--- NOTE | 2018-11-24 07:08 | NUR ---
Received patient with eyes closed, Respiration even and unlabored without SOB. call light in reach.
[2018-11-24] MEDS: INSULIN REGULAR, HUMAN 100 UNIT/1 ML 3ML VIAL SQ SCH ×2 (07:30→11:30)
[2018-11-24 07:31] VITALS: BP 133/60
[2018-11-24 08:11] VITALS: BP 133/60
[2018-11-24] MEDS: AMLODIPINE BESYLATE 5 MG TAB PO SCH (08:24)
[2018-11-24] MEDS: GABAPENTIN 300 MG CAP PO SCH (08:24)
[2018-11-24] MEDS ORDERED: LOSARTAN POTASSIUM 100 MG TAB PO SCH (09:00)
[2018-11-24] MEDS ORDERED: KEFLEX500 MG PO (11:39)
[2018-11-24] MEDS ORDERED: NORCO 7.5-3251 EACH PO (11:41)
[2018-11-24 12:23] VITALS: BP 170/74
--- NOTE | 2018-11-24 13:07 | NUR ---
PIV to right hand discontinued. Catheter tip intact, no bleeding noted. Transported patient via wheelchair to private vehicle. Belongings with the .
== END 2018-11-24 13:06 | disposition home or self-care (01) ==
LOC: OR 06:51 → PACU V 11:12 → MED/SURG 13:11
PROVIDERS: ADMIT Surgery; ATTEND Surgery
DX: K43.6 Other and unspecified ventral hernia with obstruction, without gangrene (principal); Z01.810 Encounter for preprocedural cardiovascular examination; Z01.812 Encounter for preprocedural laboratory examination; Z01.811 Encounter for preprocedural respiratory examination; E66.01 Morbid (severe) obesity due to excess calories; G47.33 Obstructive sleep apnea (adult) (pediatric); J45.909 Unspecified asthma, uncomplicated; I10 Essential (primary) hypertension; E11.9 Type 2 diabetes mellitus without complications; Z68.42 Body mass index [BMI] 45.0-49.9, adult; Z79.82 Long term (current) use of aspirin; Z79.84 Long term (current) use of oral hypoglycemic drugs
CPT/HCPCS: 36415 ×3; 49561; 49568; 71046; 80048 ×2; 81003; 82948 ×2; 85025 ×2; 88302; 93005; C1781; C9113; G0378 ×2; J0131 ×2; J0461; J0690 ×2; J1100; J1885; J2001; J2250; J2405; J2704; J3010; J7030

== ENCOUNTER → 2022-08-06 | Day surgery (SDC) | payer MEDICARE ==
[2022-08-02 14:13] LABS: BASOPHILS % 0.3 % (0.0-1.0); EOSINOPHILS # (AUTO) 0.2 (0.0-0.4); EOSINOPHILS % 2.5 % (0.0-6.0); HEMOGLOBIN 10.7 g/dL (12.0-16.0); LYMPHOCYTES # (AUTO) 1.3 (1.0-3.2); LYMPHOCYTES % 22.2 % (18.0-39.1); MEAN CORPUSCULAR HEMOGLOBIN 26.4 pg (28-32); MEAN CORPUSCULAR HGB CONC 30.6 g/dL (31-35); MEAN CORPUSCULAR VOLUME 86.4 fL (81-99); MONOCYTES # (AUTO) 0.4 (0.2-0.8); MONOCYTES % 6.2 % (4.4-11.3); NEUTROPHILS # (AUTO) 4.1 (2.1-6.9); NEUTROPHILS % 68.5 % (38.7-80.0); PLATELET COUNT 268 x10e3/uL (140-360); RED BLOOD COUNT 4.05 x10e6/uL (3.6-5.1); RED CELL DISTRIBUTION WIDTH 14.5 % (11.7-14.4)
[~2022-08-06] MED LIST changes: +ALTOPREV40 MG PO; +HYOSCYAMINE SULFATE 0.5 MG/ML INJ ONE; +KEFLEX500 MG PO; +LACTATED RINGER'S 1,000 ML ONE; +LIDOCAINE HCL 2% LOCAL INJ 5 ML SDV VIAL INJ ONE; +NORCO 7.5-3251 EACH PO; +POVIDONE IODINE 0.05% 0.05 % ML PO ONE; +PROPOFOL IV EMULSION 10 MG/ML 20 ML VIAL ONE; +TRELEGY ELLIPT1 EACH INH
[2022-08-06 15:46] VITALS: TEMP 98.1
[2022-08-06 16:00] VITALS: BP 173/65; PULSE 79; RESP 16; O2SAT 98
== END | disposition home or self-care (01) ==
LOC: OR 11:04
PROVIDERS: ATTEND Internal Medicine Gastroenterology
DX: Z12.11 Encounter for screening for malignant neoplasm of colon (principal); D12.3 Benign neoplasm of transverse colon; D12.4 Benign neoplasm of descending colon; K59.00 Constipation, unspecified; K62.5 Hemorrhage of anus and rectum; K57.30 Diverticulosis of large intestine without perforation or abscess without bleeding; K62.89 Other specified diseases of anus and rectum; K64.4 Residual hemorrhoidal skin tags; K64.8 Other hemorrhoids; G47.33 Obstructive sleep apnea (adult) (pediatric); I10 Essential (primary) hypertension; E78.5 Hyperlipidemia, unspecified; E11.9 Type 2 diabetes mellitus without complications; J44.9 Chronic obstructive pulmonary disease, unspecified; Z01.810 Encounter for preprocedural cardiovascular examination; Z01.812 Encounter for preprocedural laboratory examination; Z79.82 Long term (current) use of aspirin; Z79.84 Long term (current) use of oral hypoglycemic drugs; Z79.899 Other long term (current) drug therapy; Z68.42 Body mass index [BMI] 45.0-49.9, adult
CPT/HCPCS: 36415 ×2; 45380; 45385; 82948; 85025; 88305; 88342; 93005; J1980; J2001; J2704; J7121; 45378; 88304